=== PATIENT | female | born 1960 | race Caucasian/White ===

== ENCOUNTER → 2020-03-08 10:44 | Outpatient (CLI) | payer OTHER, SELFPAY ==
--- NOTE | ~2020-03-08 | MM_ITS ---
EXAMINATION: MM screening [facility] w [facility]on HISTORY: Screening TECHNIQUE: Craniocaudal and mediolateral oblique 3-D tomosynthesis images were obtained and synthetic 2-D images were generated. CAD analysis was submitted and interpreted. COMPARISON: Comparison to multiple prior studies sequentially, with oldest reviewed study dated 07/2013. BREAST PARENCHYMAL COMPOSITION: There are scattered areas of fibroglandular density. FINDINGS: There is no evidence of suspicious mass, calcification, or architectural distortion to sugg est malignancy in either breast. There has been no suspicious interval change. IMPRESSION: 1. No mammographic evidence of malignancy. 2. Recommend routine screening mammography in one year. BI-RADS Category 1: Negative Reviewed, dictated and finalized at location A.
== END ==
PROVIDERS: Visit Provider Nurse Practitioner
DX: Z12.31 Encounter for screening mammogram for malignant neoplasm of breast (principal)
CPT/HCPCS: 77063; 77067

== ENCOUNTER 2020-11-13 12:41 | Outpatient (CLI) | payer OTHER, SELFPAY ==
--- NOTE | ~2020-11-13 | XR_ITS ---
XR foot LT 2V DATE: 11/13/2020 13:38 INDICATION: Rheumatoid arthritis. Painful and swollen joints. TECHNIQUE: Standing AP and lateral views COMPARISON: None FINDINGS: Diffuse osteopenia. There is soft tissue swelling at the lateral aspect of the right distal fifth metatarsal and fifth me tatarsophalangeal area. Moderate osteoarthritic change including joint space narrowing and spurring at the first metatarsopha langeal joint. Mild hallux valgus and bunion deformity. Slight plantar calcaneal enthesopathy. No fracture, dislocation, periosteal reaction or bone destruction or erosive changes are noted. IMPRESSION: Moderate osteoarthritis at first metatarsophalangeal joint Mild hallux valgus and bunion deformity Soft tissue swelling at the lateral fifth metatarsophalangeal area Slight plantar calcaneal enthesopathy Reviewed, dictated and finalized at location A.
--- NOTE | ~2020-11-13 | XR_ITS ---
EXAMINATION: HAND-VIKASH ARTHRITIS 3+VIEWS DATE: 11/13/2020 13:38 INDICATION: Rheumatoid arthritis with joint pain and swelling TECHNIQUE: Posteroanterior, lateral, and oblique views of the left and of the right hands as well as a ballcatchers view of both hands were obtained. COMPARISON: None. FINDINGS: Left hand: Normal alignment at the left hand. No fracture. Osteoarthritis characterized by nonuniform joint spac e narrowing and small marginal osteophytes, mild at the left triscaphe, first carpometacarpal, first metacarpophalangeal and multiple predominantly distal interphalangeal joints. There is periarticular soft tissue swelling most prominent at the first, second and third metacarpophalangeal joints. No ero sions identified. Right hand: The dorsal palmar view of the right hand appears to demonstrate some rotation of the scaphoid and sriram ate raising suspicion for dorsal intercalated segment instability (DISI) however the alignment appear s normal on the lateral projection. There is however severe osteoarthritis at the radioscaphoid artic ulation which could be seen with scapholunate advanced collapse (SLAC) wrist. There are a couple tiny ossicles at the ulnar side of the wrist joint which could represent either degenerative loose bodies or heterotopic ossicles related to old trauma. There is additional mild osteoarthritis at the wrist, triscaphe, first carpometacarpal, first-third metacarpophalangeal and multiple predominantly distal interphalangeal joints. Relatively symmetric pattern of periarticular soft tissue swelling at the fir st-third metacarpophalangeal joints. There is additional periarticular soft tissue swelling at the th ird proximal interphalangeal joint. No erosions identified. IMPRESSION: 1. Relatively symmetric polyarticular osteoarthritis of both hands aside from severe likely secondary osteoarthritis at the right scaphoid articulation which may be related to old trauma. 2. Prominent nonspecific periarticular soft tissue swelling at the bilateral first-third metacarpopha langeal joints and at the left third proximal interphalangeal joint. Synovitis at the metacarpophalan geal joints would be typical of rheumatoid arthritis although no erosions are appreciated to more spe cifically suggest this. Reviewed, dictated and finalized at location A. IMPRESSION: 1. Relatively symmetric polyarticular osteoarthritis of both hands aside from s evere likely secondary osteoarthritis at the right scaphoid articulation which may be related to old trauma. 2. Prominent nonspecific periarticular soft tissue swelling at the bilateral fi rst-third metacarpophalangeal joints and at the left third proximal interphalan geal joint. Synovitis at the metacarpophalangeal joints would be typical of rhe umatoid arthritis although no erosions are appreciated to more specifically sug gest this.
--- NOTE | ~2020-11-13 | XR_ITS ---
XR foot RT 2V DATE: 11/13/2020 13:38 INDICATION: Painful swollen joints. Rheumatoid arthritis. TECHNIQUE: AP and lateral views COMPARISON: 03/31/2018 right foot FINDINGS: There has been interval prominent soft tissue swelling of the lateral aspect of the fifth m etatarsophalangeal area. There is narrowing and scalloping of the mid and distal shaft and neck of the proximal phalanx of the fourth digit due to chronic extrinsic pressure. Otherwise no juxta articular erosions are noted. Mild chronic organized periosteal reaction along the proximal to mid lateral shaft of the fourth meta tarsal bone. Slight plantar and posterior calcaneal enthesopathy. IMPRESSION: Focal soft tissue swelling at the lateral fifth metatarsophalangeal area Chronic extrinsic erosion on the shaft and neck of the proximal phalanx of the fourth digit Slight plantar and posterior calcaneal enthesopathy Reviewed, dictated and finalized at location A.
== END 2020-11-13 12:42 | disposition home or self-care (01) ==
PROVIDERS: PCP Family Medicine; Visit Provider Internal Medicine
DX: M35.1 Other overlap syndromes (principal); M05.79 Rheumatoid arthritis with rheumatoid factor of multiple sites without organ or systems involvement; M19.90 Unspecified osteoarthritis, unspecified site
CPT/HCPCS: 73130; 73620

== ENCOUNTER 2020-12-18 07:09 | Outpatient (CLI) | payer OTHER, SELFPAY ==
[2020-12-18 07:28] LABS: Hemoglobin 13.8 g/dL (12.0-15.0); Mean Corpuscular HGB Conc 32.1 g/dL (32.0-36.0); Mean Corpuscular Hemoglobin 29.7 pg (27.0-31.0); Mean Corpuscular Volume 92.7 fL (78.0-102.0); Mean Platelet Volume 10.4 fl (9.2-11.8); Platelet Count Result 316 K/mm3 (150-420); Red Blood Count 4.64 M/mm3 (4.20-5.40); Red Cell Distribution Width 13.1 % (11.6-14.4); White Blood Count 6.9 K/mm3 (4.8-10.8)
[2020-12-18 07:29] LABS: Add Urine Microscopic? NO; Appearance Urine Clear (Clear); Bilirubin Urine Negative (Negative); Blood Urine Negative (Negative); Color Urine Light Yellow (Yellow); Glucose Urine UA Negative (Negative); Ketones Urine Negative (Negative); Leukocyte Esterase Ur Negative LEU/UL (Negative); Nitrate Urine Negative (Negative); Protein Urine Negative (Negative); Specific Grav Ur <= 1.005 (1.010-1.020); Urobilinogen Urine 0.2 mg/dL (0.2-1.0); pH Urine 6.5 (5.0-8.0)
[2020-12-18 08:24] LABS: Alanine Aminotransferase 34 U/L (14-59); Albumin Level 3.4 g/dL (3.4-5.0); Alkaline Phosphatase 89 U/L (46-116); Anion Gap 11 mmol/L (8-16); Aspartate Amino Transferase 19 U/L (15-37); Bilirubin,Total 0.4 mg/dL (0.00-1.00); Blood Urea Nitrogen 14 mg/dL (7-18); CRP 0.7 mg/dL (0.0-0.9); Calcium 8.2 mg/dL (8.5-10.1); Carbon Dioxide 26 mmol/L (21-32); Chloride 106 mmol/L (98-108); Estimated Glomerular Filt Rate > 60; Glucose 104 mg/dL (70-99); Osmolality Calculated 296 mOsm/kg (285-295); Potassium 4.2 mmol/L (3.5-5.1); Sodium 143 mmol/L (136-145); Total Protein 6.8 g/dL (6.4-8.2)
[2020-12-18 08:47] LABS: Rheumatoid Factor Screen Positive (Negative)
[2020-12-18 08:55] LABS: Erythrocyte Sedimentation Rate 24 mm/hr (0-20); RFT Charge Test YES
[2020-12-20 19:59] LABS: Hepatitis B Surface Antibody Nonreactive (Nonreactive); Hepatitis B Surface Antigen Nonreactive (Nonreactive); Hepatitis C Signal to Cutoff 0.01 ratio (<1.00); Hepatitis C Virus Antibody Nonreactive (Nonreactive)
[2020-12-21 11:03] LABS: Complement C3 152 mg/dL (83-193)
[2020-12-22 07:33] LABS: Quantiferon TB Plus, 1T NEGATIVE
[2020-12-22 07:34] LABS: NIL 0.02 IU/mL
[2020-12-22 08:00] LABS: SM Antibody <1.0; SM/RNP Antibody 6.4
[2020-12-22 10:38] LABS: SS-A <1.0; SS-B <1.0
== END 2020-12-18 07:10 | disposition home or self-care (01) ==
LOC: CHSLAB 07:12
PROVIDERS: PCP Family Medicine; Visit Provider Internal Medicine
DX: M19.90 Unspecified osteoarthritis, unspecified site (principal); M35.1 Other overlap syndromes; M05.79 Rheumatoid arthritis with rheumatoid factor of multiple sites without organ or systems involvement
CPT/HCPCS: 36415; 80053; 81003; 85027; 85652; 86038; 86039; 86140; 86160; 86225; 86235; 86430; 86431; 86480; 86706

== ENCOUNTER 2021-04-21 06:32 | Outpatient (CLI) | payer OTHER, SELFPAY ==
--- NOTE | ~2021-04-21 | MR_ITS ---
EXAMINATION: MR foot RT wo con, MR foot LT wo con DATE: 04/21/2021 08:48 INDICATION: Rheumatoid arthritis with rheumatoid factor presenting with bones at the lateral aspect o f both feet. TECHNIQUE: 1. Magnetic resonance imaging (MRI) of the right fore/mid foot was performed without intravenous cont rast. Sequences included sagittal T1-weighted FSE, sagittal fluid sensitive FSE STIR, coronal PD-weig hted FS FSE, coronal T1-weighted FSE, axial PD-weighted FS FSE, and axial PD-weighted FSE. 2. MRI of the left fore/mid foot was performed without intravenous contrast and utilizing the same co mplement of sequences. COMPARISON: None FINDINGS: Bone alignment is normal at the bilateral mid and forefeet. No fractures. There are globular periarti cular collections of heterogeneous T2 hyperintense material most prominent about the bilateral fifth metatarsophalangeal joints likely representing synovitis in the setting of an inflammatory arthritis. Additional smaller collection of synovitis about the right second-fourth metatarsophalangeal and lef t first metatarsophalangeal joints. There is diffuse marrow edema throughout the head of the right fi fth metatarsal. Otherwise normal marrow signal throughout the bilateral mid and forefeet. No discrete erosions identified. Mild arthritis at the right first metatarsophalangeal joint with joint space na rrowing and mild subarticular edema at the articulation between the head of the first metatarsal and the tibial sesamoid. Additional mild likely osteoarthritis with tiny marginal osteophyte and subartic ular cystic changes at the left first tarsal metatarsal joint. The flexor and extensor tendons are no rmal. There is mild tenosynovitis along the flexor tendons to the right great toe at the level of the distal metatarsal. 7 x 7 x 4 mm more homogeneously and hyperintense ganglion cyst at the medial side of the left fourth middle phalanx which appears to demonstrate a thin neck extending to the proximal interphalangeal joint. No other masses or abnormal fluid collections identified. There is mild peria rticular soft tissue edema about the metatarsophalangeal joints in the left foot. Visualized intrinsi c musculature of the bilateral feet appears otherwise unremarkable. The Lisfranc ligaments and the co llateral ligament complex at the metatarsophalangeal and interphalangeal joints are normal. IMPRESSION: 1. Prominent globular periarticular synovitis at the left second-fifth and right first and fifth tars al metatarsal joints, the most severe at the bilateral fifth tarsal metatarsal joints accounting for the reported bumps on physical exam. This could be seen with either rheumatoid arthritis for which th e patient is a provided clinical history or tophaceous gout. 2. No cortical erosions however there is nonspecific mild marrow edema at the head of the right fifth metatarsal which could be related to rheumatoid. Reviewed, dictated and finalized at location A. UNTS RECEIVABLE ADMINISTRATOR IMPRESSION: 1. Prominent globular periarticular synovitis at the left second-fifth and righ t first and fifth tarsal metatarsal joints, the most severe at the bilateral fi fth tarsal metatarsal joints accounting for the reported bumps on physical exam . This could be seen with either rheumatoid arthritis for which the patient is a provided clinical history or tophaceous gout. 2. No cortical erosions however there is nonspecific mild marrow edema at the h ead of the right fifth metatarsal which could be related to rheumatoid.
== END 2021-04-21 06:33 | disposition home or self-care (01) ==
PROVIDERS: PCP Family Medicine; Visit Provider Internal Medicine
DX: M05.79 Rheumatoid arthritis with rheumatoid factor of multiple sites without organ or systems involvement (principal)
CPT/HCPCS: 73718

== ENCOUNTER 2021-04-24 13:45 | Outpatient (NON) | payer OTHER, SELFPAY | END 2021-04-24 13:46 | disposition home or self-care (01) | LOC: CHSLAB 13:47 | PROVIDERS: Visit Provider Nurse Practitioner Family | DX: Z12.4 Encounter for screening for malignant neoplasm of cervix (principal); Z13.89 Encounter for screening for other disorder | CPT/HCPCS: 87491; 87591; 87624; 88175; G0145 ==

== ENCOUNTER 2021-04-25 12:20 | Outpatient (CLI) | payer OTHER, SELFPAY ==
--- NOTE | ~2021-04-25 | MM_ITS ---
EXAMINATION: MM screening [facility] BI w leon HISTORY: Screening mammogram TECHNIQUE: Craniocaudal and mediolateral oblique 3-D tomosynthesis images were obtained and synthetic 2-D images were generated. CAD analysis was submitted and interpreted. COMPARISON: 03/08/2020, 03/03/2019, 02/25/2018 BREAST PARENCHYMAL COMPOSITION: There are scattered areas of fibroglandular density. FINDINGS: Stable focal asymmetry in the middle third of the upper outer quadrant of the right breast is consistent with a benign finding. There is no evidence of suspicious mass, calcification, or archi tectural distortion to suggest malignancy in either breast. There has been no suspicious interval kaya nge. IMPRESSION: 1. No mammographic evidence of malignancy. 2. Recommend routine screening mammography in one year. BI-RADS Category 2: Benign finding(s). Reviewed, dictated and finalized at location A. DDING SPECIALIST
== END 2021-04-25 12:21 | disposition home or self-care (01) ==
LOC: CHSIMG 12:21
PROVIDERS: PCP Nurse Practitioner Family; Visit Provider Nurse Practitioner Family
DX: Z12.31 Encounter for screening mammogram for malignant neoplasm of breast (principal)
CPT/HCPCS: 77063; 77067

== ENCOUNTER 2021-05-07 07:07 | Outpatient (CLI) | payer OTHER, SELFPAY ==
[2021-05-07 07:20] LABS: Add Urine Microscopic? NO; Appearance Urine Clear (Clear); Bilirubin Urine Negative (Negative); Blood Urine Negative (Negative); Color Urine Light Yellow (Yellow); Glucose Urine UA Negative (Negative); Hematocrit 39.9 % (35.0-49.0); Hemoglobin 12.8 g/dL (12.0-15.0); Ketones Urine Negative (Negative); Leukocyte Esterase Ur Negative LEU/UL (Negative); Mean Corpuscular HGB Conc 32.1 g/dL (32.0-36.0); Mean Corpuscular Hemoglobin 28.5 pg (27.0-31.0); Mean Corpuscular Volume 88.9 fL (78.0-102.0); Mean Platelet Volume 10.5 fl (9.2-11.8); Nitrate Urine Negative (Negative); Platelet Count Result 246 K/mm3 (150-420); Protein Urine Negative (Negative); Red Blood Count 4.49 M/mm3 (4.20-5.40); Red Cell Distribution Width 12.4 % (11.6-14.4); Specific Grav Ur 1.015 (1.010-1.020); Urobilinogen Urine 0.2 mg/dL (0.2-1.0); White Blood Count 8.2 K/mm3 (4.8-10.8); pH Urine 5.5 (5.0-8.0)
[2021-05-07 08:23] LABS: Erythrocyte Sedimentation Rate 22 mm/hr (0-20)
[2021-05-07 09:03] LABS: Alanine Aminotransferase 30 U/L (14-59); Albumin Level 3.2 g/dL (3.4-5.0); Alkaline Phosphatase 78 U/L (46-116); Anion Gap 9 mmol/L (8-16); Aspartate Amino Transferase 18 U/L (15-37); Bilirubin,Total 0.3 mg/dL (0.00-1.00); Blood Urea Nitrogen 9 mg/dL (7-18); CRP < 0.5 mg/dL (0.0-0.9); Calcium 8.8 mg/dL (8.5-10.1); Carbon Dioxide 27 mmol/L (21-32); Chloride 108 mmol/L (98-108); Estimated Glomerular Filt Rate > 60; Glucose 93 mg/dL (70-99); Osmolality Calculated 296 mOsm/kg (285-295); Potassium 4.2 mmol/L (3.5-5.1); Sodium 144 mmol/L (136-145); Total Protein 6.4 g/dL (6.4-8.2)
== END 2021-05-07 07:08 | disposition home or self-care (01) ==
LOC: CHSLAB 07:09
PROVIDERS: PCP Family Medicine; Visit Provider Internal Medicine
DX: M05.79 Rheumatoid arthritis with rheumatoid factor of multiple sites without organ or systems involvement (principal); M19.90 Unspecified osteoarthritis, unspecified site
CPT/HCPCS: 36415; 80053; 81003; 85027; 85652; 86140

== ENCOUNTER 2022-01-19 07:13 | Outpatient (CLI) | payer OTHER, SELFPAY ==
[2022-01-19 07:25] LABS: Hematocrit 39.5 % (35.0-49.0); Hemoglobin 12.9 g/dL (12.0-15.0); Mean Corpuscular HGB Conc 32.7 g/dL (32.0-36.0); Mean Corpuscular Hemoglobin 28.9 pg (27.0-31.0); Mean Corpuscular Volume 88.6 fL (78.0-102.0); Mean Platelet Volume 10.4 fl (9.2-11.8); Platelet Count Result 258 K/mm3 (150-420); Red Blood Count 4.46 M/mm3 (4.20-5.40); Red Cell Distribution Width 12.7 % (11.6-14.4); White Blood Count 5.8 K/mm3 (4.8-10.8)
[2022-01-19 07:34] LABS: Add Urine Microscopic? NO; Appearance Urine Clear (Clear); Bilirubin Urine Negative (Negative); Blood Urine Negative (Negative); Color Urine Light Yellow (Yellow); Glucose Urine UA Negative (Negative); Ketones Urine Negative (Negative); Leukocyte Esterase Ur Negative LEU/UL (Negative); Nitrate Urine Negative (Negative); Protein Urine Negative (Negative); Specific Grav Ur <= 1.005 (1.010-1.020); Urobilinogen Urine 0.2 mg/dL (0.2-1.0); pH Urine 5.5 (5.0-8.0)
[2022-01-19 07:46] LABS: Alanine Aminotransferase 41 U/L (14-59); Albumin Level 3.3 g/dL (3.4-5.0); Alkaline Phosphatase 79 U/L (46-116); Anion Gap 7 mmol/L (8-16); Aspartate Amino Transferase 25 U/L (15-37); Bilirubin,Total 0.3 mg/dL (0.00-1.00); Blood Urea Nitrogen 12 mg/dL (7-18); Calcium 8.3 mg/dL (8.5-10.1); Carbon Dioxide 26 mmol/L (21-32); Chloride 106 mmol/L (98-108); Estimated Glomerular Filt Rate > 60; Glucose 100 mg/dL (70-99); Osmolality Calculated 287 mOsm/kg (285-295); Sodium 139 mmol/L (136-145); Total Protein 6.8 g/dL (6.4-8.2)
[2022-01-19 07:50] LABS: CRP < 0.2 mg/dL (0.0-0.9)
[2022-01-19 08:35] LABS: Erythrocyte Sedimentation Rate 20 mm/hr (0-20)
== END 2022-01-19 07:14 | disposition home or self-care (01) ==
LOC: CHSLAB 07:15
PROVIDERS: PCP Family Medicine; Visit Provider Internal Medicine
DX: M19.90 Unspecified osteoarthritis, unspecified site (principal); M35.1 Other overlap syndromes
CPT/HCPCS: 36415; 80053; 81003; 85027; 85652; 86140

== ENCOUNTER 2022-05-14 13:41 | Outpatient (CLI) | payer OTHER, SELFPAY ==
--- NOTE | ~2022-05-14 | MM_ITS ---
EXAMINATION: MM screening [facility] BI w leon HISTORY: Screening TECHNIQUE: Craniocaudal and mediolateral oblique 3-D tomosynthesis images were obtained and synthetic 2-D images were generated. CAD analysis was submitted and interpreted. COMPARISON: Comparison to multiple prior studies sequentially, with oldest reviewed study dated 02/14. BREAST PARENCHYMAL COMPOSITION: There are scattered areas of fibroglandular density. FINDINGS: There is no evidence of suspicious mass, calcification, or architectural distortion to sugg est malignancy in either breast. There has been no suspicious interval change. IMPRESSION: 1. No mammographic evidence of malignancy. 2. Recommend routine screening mammography in one year. BI-RADS Category 1: Negative Reviewed, dictated and finalized at location B. UNICATION ENGINEER
== END 2022-05-14 13:42 | disposition home or self-care (01) ==
LOC: CHSIMG 13:43
PROVIDERS: PCP Family Medicine; Visit Provider Nurse Practitioner Family
DX: Z12.31 Encounter for screening mammogram for malignant neoplasm of breast (principal)
CPT/HCPCS: 77063; 77067

== ENCOUNTER 2022-07-12 15:10 | Outpatient (CLI) | payer OTHER, SELFPAY ==
--- NOTE | ~2022-07-12 | XR_ITS ---
EXAMINATION: XR lumbar spine 2-3V DATE: 07/12/2022 15:41 INDICATION: Low back pain with sciatica TECHNIQUE: Anteroposterior and lateral views of the lumbar spine, and cone-down lateral view of the l umbosacral junction were obtained. COMPARISON: None. FINDINGS: No fracture, dislocation, or subluxation. The vertebral body heights are normal. There is m ild loss of intervertebral disc space height at L4-5. Small degenerative osteophytes project from the anterior endplates of multiple vertebral bodies. There is moderate facet joint osteoarthritis of the lower lumbar spine. IMPRESSION: 1. Mild lumbar spondylosis without acute findings. Reviewed, dictated and finalized at location B. OMETEOROLOGY TEACHER
== END 2022-07-12 15:11 | disposition home or self-care (01) ==
LOC: CHSIMG 15:12
PROVIDERS: PCP Family Medicine; Visit Provider Family Medicine
DX: G89.29 Other chronic pain (principal); M54.42 Lumbago with sciatica, left side; M43.06 Spondylolysis, lumbar region
CPT/HCPCS: 72100

== ENCOUNTER 2022-07-16 14:59 | Outpatient (RCR) | payer OTHER, SELFPAY ==
--- NOTE | 2022-07-17 16:38 | BUPTOPEVAL1 ---
Assessment and note entered by Rahat Fine Evaluation Information Assessment Status Evaluation Diagnosis lumbago Onset 07/12/22 Subjective Information Pt. reports that she developed pain in the low back and down the left leg about 1 month ago. She reports that she was walking her cat and the cat began to pull, which twisted her back. She recalls no immediate pain, but pain began shortly after the incident. She reports pain is currently constant. She reports that she does suffer from mixed connective tissue disease, which she sees a massage therapist treat. She reports that her left foot is making a dropping noise as she walks. She states that pain is most notable with getting up from a seated position. She states that she is taking mm. relaxor before bed which helps with sleep. She is not currently taking any pain medication. Pt. reports that she was walking at least 1 mile everyday before her injury , but cannot currently walk 1 block. She reports she avoids going to [facility] because she is uncomfortable in a chair. She reports that her goal is to decrease her back pain. Reported Pain Level Pain Score 3: Self Report Assessment PT Clinical Summary Pt. is a 62 year old female who enters the clinic with low back pain and left l.e. weakness. She presents with impaired postural awareness, impaired strength, impaired gait, and pain on this date. Continued treatment is indicated in order to improve these areas to allow the pt. to participate in IADL's with improved comfort. Plan of Care Interventions Electrical Stimulation,Hot Pack/Cold Pack,Manual Therapy,Mechanical Traction,Neuro Re-education, Patient/Caregiver Educati,Therapeutic Activities, Therapeutic Exercise,Self-Care/Home Management PT Services Indicated Yes Treatment Frequency and 2x/week x 10 visits Duration These treatments will address the objective and functional deficits as defined above. The patient will be advanced safely and appropriately in order for the patient to progress towards his/her prior level of function. Additional exercises will be introduced and as well as a comprehensive home exercise program upon discharge, if needed, ?to ensure carryover of functional gains achieved in the clinic. This treatment plan has been reviewed and agreement upon by the patient.
--- NOTE | 2022-08-23 11:59 | PTOPDC ---
Assessment and note entered by JT File, PT Evaluation Information Assessment Status Evaluation Diagnosis lumbago Onset 07/12/22 Subjective Information patient reports she feels better overall. she reports she still has radicular symptoms down the L LE, but her pain is decreased. she reports she feels she can manage with her HEP at this time. Reported Pain Level Pain Score 3: Self Report Assessment PT Clinical Summary mrs. arizmendi presents to skilled PT services for her 10th skilled therapy visit. as of this date, she has made progress towards all goals, and has met all goals except for pain and radicular symptoms. as of this date, she will DC skilled PT independent HEP and follow up with MD/PT for an return to therapy needs. Plan of Care Interventions Electrical Stimulation,Hot Pack/Cold Pack,Manual Therapy,Mechanical Traction,Neuro Re-education, Patient/Caregiver Educati,Therapeutic Activities, Therapeutic Exercise,Self-Care/Home Management PT Services Indicated Yes Treatment Frequency and DC to independent HEP Duration
== END 2022-08-23 10:52 | disposition home or self-care (01) ==
LOC: CHSPT 14:59
PROVIDERS: PCP Family Medicine; Visit Provider Family Medicine
DX: M54.42 Lumbago with sciatica, left side (principal); G89.29 Other chronic pain
CPT/HCPCS: 97012; 97014; 97110; 97140; 97161; G0283

== ENCOUNTER 2022-07-19 12:51 | Outpatient (CLI) | payer OTHER, SELFPAY ==
--- NOTE | ~2022-07-19 | DEXA_ITS ---
Bone Density Report Name: ARIELLA CACERES Age: 62 Sex: Female Ethnicity: White Date of : 1960 Indication: postmenopausal; screening for osteoporosis; height loss; hysterectomy; rheumatoid arthritis; Referring Provider: Declan Pat Study: Bone densitometry was performed. Exam Date: July 19, 2022 Accession number: [id number] Bone Density: Region BMD T-score Z-score Classification AP Spine(L1-L4) 1.006 -0.4 1.2 Normal Femoral Neck (Left) 0.782 -0.6 0.8 Normal Total Hip (Left) 0.920 -0.2 0.9 Normal Femoral Neck (Right) 0.766 -0.7 0.7 Normal Total Hip (Right) 0.932 -0.1 1.0 Normal Femoral Neck Mean 0.774 -0.7 0.7 Normal Total Hip Mean 0.926 -0.1 1.0 Normal World Health Organization criteria for BMD impression classify patients as: Normal (T-score at or above -1.0), Osteopenia (T-score between -1.0 and -2.5), or Osteoporosis (T-score at or below -2.5). 10-year Fracture Risk: FRAX not reported because: All T-scores for Spine Total, Hip Total, Femoral Neck at or above -1.0 Clinical Information Provided by Patient: Has rheumatoid arthritis Has used the following medications: HRT (i.e. estrogen/hormone therapy), Vitamin D, Calcium, multivitiman Has the following medical conditions: Hysterectomy Patient maximum height was 65 Menopause Age: 39 Onset of menses at age 13 Number of children 1 Impression: The patient has normal bone mass. Discussion: BONE DENSITY IS ABOVE THE MINIMUM DESIRABLE LEVEL AT ALL SKELETAL SITES TESTED. This patient?s bone mineral density is above the minimum desirable level (T-score -1.0 or better) at all sites measured. The patient should follow a healthful lifestyle (good nutrition with adequate calcium and vitamin D, and appropriate weight-bearing exercise). Follow-Up: Consider repeating this study in 5 years or sooner if there is some new clinical indication. Reported by: Dr. Matthew Harris on 07/19/2022 1:12:00 PM. Reviewed, dictated and finalized at location [facility]
== END 2022-07-19 12:52 | disposition home or self-care (01) ==
LOC: CHSIMG 12:52
PROVIDERS: PCP Family Medicine; Visit Provider Family Medicine
DX: Z78.0 Asymptomatic menopausal state (principal)
CPT/HCPCS: 77080

== ENCOUNTER 2022-08-10 07:02 | Outpatient (CLI) | payer OTHER, SELFPAY ==
[2022-08-10 07:19] LABS: Hematocrit 39.4 % (35.0-49.0); Hemoglobin 12.7 g/dL (12.0-15.0); Mean Corpuscular HGB Conc 32.2 g/dL (32.0-36.0); Mean Corpuscular Hemoglobin 28.6 pg (27.0-31.0); Mean Corpuscular Volume 88.7 fL (78.0-102.0); Mean Platelet Volume 10.3 fl (9.2-11.8); Platelet Count Result 283 K/mm3 (150-420); Red Blood Count 4.44 M/mm3 (4.20-5.40); Red Cell Distribution Width 13.1 % (11.6-14.4); White Blood Count 5.8 K/mm3 (4.8-10.8)
[2022-08-10 07:20] LABS: Appearance Urine Clear (Clear); Bilirubin Urine Negative (Negative); Blood Urine Negative (Negative); Color Urine Light Yellow (Yellow); Glucose Urine UA Negative (Negative); Ketones Urine Negative (Negative); Nitrate Urine Negative (Negative); Protein Urine Negative (Negative); Urobilinogen Urine 0.2 mg/dL (0.2-1.0)
[2022-08-10 07:22] LABS: Add Urine Microscopic? NO; Leukocyte Esterase Ur Negative LEU/UL (Negative)
[2022-08-10 07:36] LABS: Alanine Aminotransferase 49 U/L (14-59); Albumin Level 3.4 g/dL (3.4-5.0); Alkaline Phosphatase 71 U/L (46-116); Anion Gap 7 mmol/L (8-16); Aspartate Amino Transferase 28 U/L (15-37); Bilirubin,Total 0.4 mg/dL (0.00-1.00); Blood Urea Nitrogen 14 mg/dL (7-18); Calcium 8.7 mg/dL (8.5-10.1); Carbon Dioxide 30 mmol/L (21-32); Chloride 107 mmol/L (98-108); Estimated Glomerular Filt Rate > 60; Glucose 100 mg/dL (70-99); Osmolality Calculated 298 mOsm/kg (285-295); Potassium 4.2 mmol/L (3.5-5.1); Sodium 144 mmol/L (136-145); Total Protein 6.6 g/dL (6.4-8.2)
[2022-08-10 07:43] LABS: CRP < 0.5 mg/dL (0.0-0.9)
[2022-08-10 08:38] LABS: Erythrocyte Sedimentation Rate 15 mm/hr (0-20)
== END 2022-08-10 07:03 | disposition home or self-care (01) ==
LOC: CHSLAB 07:03
PROVIDERS: PCP Family Medicine; Visit Provider Internal Medicine
DX: M05.79 Rheumatoid arthritis with rheumatoid factor of multiple sites without organ or systems involvement (principal); M19.90 Unspecified osteoarthritis, unspecified site
CPT/HCPCS: 36415; 80053; 81003; 85027; 85652; 86140

== ENCOUNTER 2022-08-27 10:21 | Outpatient (CLI) | payer OTHER, SELFPAY ==
[2022-08-29 17:14] LABS: NIL 0.01 IU/mL; Quantiferon TB Plus, 1T NEGATIVE (NEGATIVE); TB2-NIL 0.03 IU/mL
== END 2022-08-27 10:22 | disposition home or self-care (01) ==
LOC: CHSLAB 10:23
PROVIDERS: PCP Family Medicine; Visit Provider Internal Medicine
DX: M05.79 Rheumatoid arthritis with rheumatoid factor of multiple sites without organ or systems involvement (principal)
CPT/HCPCS: 36415; 86480

== ENCOUNTER → 2022-10-16 12:27 | Outpatient (CLI) | payer OTHER, SELFPAY ==
--- NOTE | ~2022-10-16 | MR_ITS ---
EXAMINATION: MR lumbar spine wo con DATE: 10/16/2022 13:17 INDICATION: Chronic low back pain. TECHNIQUE: Magnetic resonance imaging (MRI) of the lumbar spine was performed without intravenous con trast. Sequences included sagittal T2-weighted FSE, sagittal T2-weighted FS FSE, sagittal T1-weighted FSE, and axial T2-weighted FSE. COMPARISON: Lumbar spine radiographs 07/12/2022 FINDINGS: There is 6 degrees levocurvature of thoracolumbar spine. Vertebral body heights are normal. There is mildly decreased disc height at L4-L5. The distal spinal cord signal intensity is normal. T he conus medullaris is at L1. The following disc levels are specifically discussed: L1-L2: The disc does not extend beyond the endplate margin. There is mild bilateral facet joint osteo arthritis. There is no neural foraminal stenosis. There is no central canal stenosis. L2-L3: The disc is bulging and has an annular fissure. There is mild bilateral facet joint osteoarthr itis. There is mild bilateral neural foraminal stenosis. There is mild central canal stenosis. L3-L4: The disc is bulging and has an annular fissure. There is moderate bilateral facet joint osteoa rthritis. There is mild bilateral neural foraminal stenosis. There is no central canal stenosis. L4-L5: The disc is bulging and has an annular fissure. There is severe bilateral facet joint osteoart hritis. There is mild right and moderate left neural foraminal stenosis. There is mild central canal stenosis. L5-S1: The disc does not extend beyond the endplate margin. There is severe bilateral facet joint ost eoarthritis. There is mild left neural foraminal stenosis. There is no central canal stenosis. IMPRESSION: 1. Moderate lumbar spondylosis. Reviewed, dictated and finalized at location A.
== END ==
PROVIDERS: PCP Family Medicine; Visit Provider Family Medicine
DX: M47.896 Other spondylosis, lumbar region (principal)
CPT/HCPCS: 72148

== ENCOUNTER 2022-12-21 06:57 | Outpatient (CLI) | payer OTHER, SELFPAY ==
[2022-12-21 07:10] LABS: Hematocrit 40.7 % (35.0-49.0); Hemoglobin 12.9 g/dL (12.0-15.0); Mean Corpuscular HGB Conc 31.7 g/dL (32.0-36.0); Mean Corpuscular Hemoglobin 28.7 pg (27.0-31.0); Mean Corpuscular Volume 90.6 fL (78.0-102.0); Mean Platelet Volume 10.1 fl (9.2-11.8); Platelet Count Result 247 K/mm3 (150-420); Red Blood Count 4.49 M/mm3 (4.20-5.40); Red Cell Distribution Width 12.3 % (11.6-14.4); White Blood Count 4.9 K/mm3 (4.8-10.8)
[2022-12-21 07:20] LABS: Appearance Urine Clear (Clear); Bilirubin Urine Negative (Negative); Blood Urine Negative (Negative); Color Urine Light Yellow (Yellow); Glucose Urine UA Negative (Negative); Ketones Urine Negative (Negative); Leukocyte Esterase Ur Trace LEU/UL (Negative); Nitrate Urine Negative (Negative); Protein Urine Negative (Negative); Urobilinogen Urine 0.2 mg/dL (0.2-1.0); pH Urine 6.5 (5.0-8.0)
[2022-12-21 07:27] LABS: Add Urine Microscopic? YES; Bacteria Urine Rare /hpf; RBC Urine None seen /hpf (0-2); Squamous Epithelial Cell Urine Rare /hpf (Few); WBC Urine 0-3 /hpf (0-3)
[2022-12-21 08:02] LABS: Alanine Aminotransferase 29 U/L (14-59); Albumin Level 3.5 g/dL (3.4-5.0); Alkaline Phosphatase 68 U/L (46-116); Anion Gap 8 mmol/L (8-16); Aspartate Amino Transferase 22 U/L (15-37); Bilirubin,Total 0.4 mg/dL (0.00-1.00); Blood Urea Nitrogen 12 mg/dL (7-18); Calcium 8.9 mg/dL (8.5-10.1); Carbon Dioxide 29 mmol/L (21-32); Chloride 107 mmol/L (98-108); Estimated Glomerular Filt Rate > 60; Glucose 94 mg/dL (70-99); Osmolality Calculated 297 mOsm/kg (285-295); Potassium 4.3 mmol/L (3.5-5.1); Sodium 144 mmol/L (136-145); Total Protein 6.5 g/dL (6.4-8.2)
[2022-12-21 08:13] LABS: CRP < 0.5 mg/dL (0.0-0.9)
[2022-12-21 08:24] LABS: Erythrocyte Sedimentation Rate 18 mm/hr (0-20)
== END 2022-12-21 06:58 | disposition home or self-care (01) ==
LOC: CHSLAB 06:59
PROVIDERS: PCP Family Medicine; Visit Provider Internal Medicine
DX: M19.90 Unspecified osteoarthritis, unspecified site (principal); M05.79 Rheumatoid arthritis with rheumatoid factor of multiple sites without organ or systems involvement
CPT/HCPCS: 36415; 80053; 81001; 85027; 85652; 86140

== ENCOUNTER 2022-12-27 11:07 | Outpatient (CLI) | payer OTHER, SELFPAY ==
--- NOTE | ~2022-12-27 | XR_ITS ---
XR foot LT min 3V DATE: 12/27/2022 11:27 INDICATION: Unsteady left foot TECHNIQUE: Weightbearing 4 view examination COMPARISON: None FINDINGS: Slight plantar and posterior calcaneal enthesopathy. There is mild to moderate osteoarthritis at the first metatarsophalangeal joint. There is mild hallux valgus and bunion deformity. No fracture or dislocation, periosteal reaction or bone destruction is detected. IMPRESSION: Hallux valgus and bunion deformity Mild to moderate osteoarthritis at first metatarsophalangeal joint Slight plantar and posterior calcaneal enthesopathy Reviewed, dictated and finalized at location B.
== END 2022-12-27 11:08 | disposition home or self-care (01) ==
LOC: CHSIMG 11:09
PROVIDERS: PCP Family Medicine; Visit Provider Orthopaedic Surgery
DX: M79.672 Pain in left foot (principal); M20.12 Hallux valgus (acquired), left foot; M21.612 Bunion of left foot; M77.32 Calcaneal spur, left foot
CPT/HCPCS: 73630

== ENCOUNTER 2023-01-08 13:04 | Outpatient (RCR) | payer OTHER, SELFPAY ==
--- NOTE | 2023-01-08 15:23 | PTOPEVAL1 ---
Assessment and note entered by JT File, PT Evaluation Information Assessment Status Evaluation Diagnosis L foot drop, sciatica Onset 12/30/22 Subjective Information Patient reports a positive COVID diagnosis in late June 2022, during this time she had significant dizziness upon movement. After a few days, patient noticed she had more difficulty moving around with walking and standing. She also reports a past history of RA that is well managed and she is currently taking predisone for this issue. Patient previously recieved physical therapy this year to address L sciatica following her COVID diagnosis. More recently she has noticed her L foot slapping as she walks, she visited the doctor who recommended PT for treatment and a nerve study to investigate the cause. In the past few weeks the sciatica pain has returned, and she has been doing the exercises of her past HEP frequently. She notes any movement causes discomfort, but she is able to perform all of her normal activities. Patient states that standing or sitting for extended periods of time, such as an hour, excerbate the pain in the L lower back. She is using over the counter NSAIDs, heat, and ice to treat the pain. She notes the pain is primarily in her L lower back and buttock, however will spread down to the L toure with continued activity. She also has difficulty sleeping as she is unable to lay on L side. Reported Pain Level Pain Score 4: Self Report Assessment PT Clinical Summary Mrs. Matthew Crooks is a 62 y/o female who presents to skilled therapy to address L foot drop and sciatica. She demonstrated impaired L LE strength, flexibility, and strength. Patient has abnormal gait pattern and difficulty with functional activities such as walking or standing for longer periods of time. She currently has 85% functional decline as assessed by the LEFS. Patient would benefit from skilled therapy to address gait, strenght, flexibility, and ROM to assist in return to prior level of function. Plan of Care Interventions Electrical Stimulation,Gait Training,Hot Pack/Cold Pack,Manual Therapy,Mechanical Traction,Neuro Re- education,Patient/Caregiver Educati,Therapeutic Activities,Therapeutic Exercise PT Services Indicated Yes Treatment Frequency and 3x/week for
--- NOTE | 2023-01-08 15:23 | OPREHPOC ---
Outpatient Therapy Plan of Care This is a Multidisciplinary Plan of Care that may contain components documented by all disciplines (PT, OT, and ST.) PT Problem 1 PT Problem #1 Knowledge Deficit PT Goal 1 Goal 1. Patient to demonstrate independence with HEP to improve progress made in PT. Target Visit 4 PT Problem 2 PT Problem #2 Impaired Strength PT Goal 1 Goal 1. Patient to improve L dorsiflexion strength to 4 +/5 to help to reduce foot drop during gait pattern. 2. Patient to improve L hip strength to 4+/5 or greater overall to improve patient's ability to ascend stairs. Target Visit 9 PT Problem 3 PT Problem #3 Impaired Range of Motion PT Goal 1 Goal 1. Patient to improve L dorsiflexion AROM to 8 degrees or greater to assist patient in foot clearance to reduce fall risk. Target Visit 9 PT Problem 4 PT Problem #4 Pain PT Goal 1 Goal 1. Patient to report lower back pain as 2/10 or less at worst to allow for increased ability to stand while washing dishes. Target Visit 9 PT Problem 5 PT Problem #5 Impaired Functional Mobil PT Goal 1 Goal 1. Pt to report ability to walk for 15 minutes without pain or discomfort and no foto slap/drop to improve patient's ability to ambulate in grocery store. Target Visit 9
== END 2023-01-21 11:06 | disposition home or self-care (01) ==
LOC: CHSPT 13:04
PROVIDERS: Visit Provider Orthopaedic Surgery
DX: M79.672 Pain in left foot (principal); M21.372 Foot drop, left foot; M54.42 Lumbago with sciatica, left side; G89.29 Other chronic pain
CPT/HCPCS: 97014; 97110; 97140; 97161; 97530; G0283

== ENCOUNTER 2023-02-07 10:36 | Outpatient (CLI) | payer OTHER, SELFPAY ==
[2023-02-07 11:22] LABS: Influenza A QL RT-PCR Negative (Negative); Influenza B QL RT-PCR Negative (Negative); SARS-CoV-2 RNA PCR Negative (Negative)
== END 2023-02-07 10:37 | disposition home or self-care (01) ==
LOC: CHSLAB 10:38
PROVIDERS: PCP Family Medicine; Visit Provider Family Medicine
DX: R05.9 Cough, unspecified (principal)
CPT/HCPCS: 87636

== ENCOUNTER 2023-03-08 11:30 | Outpatient (CLI) | payer OTHER, SELFPAY ==
[2023-03-08 11:40] LABS: Occult Blood Negative (Negative)
== END 2023-03-08 11:31 | disposition home or self-care (01) ==
LOC: CHSLAB 11:31
PROVIDERS: PCP Family Medicine; Visit Provider Nurse Practitioner Family
DX: Z79.899 Other long term (current) drug therapy (principal)
CPT/HCPCS: 82272

== ENCOUNTER 2023-04-12 06:54 | Outpatient (CLI) | payer OTHER, SELFPAY ==
[2023-04-12 07:08] LABS: Basophils Absolute Auto 0.09 K/mm3 (0.00-0.10); Basophils Percent Auto 1.5 % (0.0-1.0); Eosinophils Absolute Auto 0.19 K/mm3 (0.02-0.50); Eosinophils Percent Auto 3.2 % (1.0-6.0); Hematocrit 41.1 % (35.0-49.0); Hemoglobin 13.2 g/dL (12.0-15.0); Immature Granulocyte Absolute 0.01 K/mm3 (0.00-0.00); Immature Granulocyte Percent A 0.2 % (0.0-0.0); Lymphocytes Absolute Auto 2.36 K/mm3 (1.10-4.50); Lymphocytes Percent Auto 40.2 % (18.0-42.0); Mean Corpuscular HGB Conc 32.1 g/dL (32.0-36.0); Mean Corpuscular Hemoglobin 28.6 pg (27.0-31.0); Mean Corpuscular Volume 89.2 fL (78.0-102.0); Mean Platelet Volume 11.1 fl (9.2-11.8); Monocytes Absolute Auto 0.47 K/mm3 (0.10-0.90); Neutrophils Absolute Auto 2.8 K/mm3 (1.7-7.2); Neutrophils Percent Auto 46.9 % (50.0-70.0); Platelet Count Result 285 K/mm3 (150-420); Red Blood Count 4.61 M/mm3 (4.20-5.40); Red Cell Distribution Width 12.9 % (11.6-14.4); White Blood Count 5.9 K/mm3 (4.8-10.8)
[2023-04-12 07:42] LABS: Alanine Aminotransferase 43 U/L (14-59); Albumin Level 3.5 g/dL (3.4-5.0); Alkaline Phosphatase 93 U/L (46-116); Anion Gap 5 mmol/L (8-16); Aspartate Amino Transferase 25 U/L (15-37); Bilirubin,Total 0.4 mg/dL (0.00-1.00); Blood Urea Nitrogen 16 mg/dL (7-18); Calcium 9.2 mg/dL (8.5-10.1); Carbon Dioxide 32 mmol/L (21-32); Chloride 106 mmol/L (98-108); Estimated Glomerular Filt Rate > 60; Glucose 115 mg/dL (70-99); Osmolality Calculated 298 mOsm/kg (285-295); Potassium 4.3 mmol/L (3.5-5.1); Sodium 143 mmol/L (136-145)
[2023-04-12 07:47] LABS: CRP < 0.5 mg/dL (0.0-0.9)
[2023-04-12 08:07] LABS: Erythrocyte Sedimentation Rate 20 mm/hr (0-20)
== END 2023-04-12 06:55 | disposition home or self-care (01) ==
LOC: CHSLAB 06:57
PROVIDERS: PCP Family Medicine; Visit Provider Internal Medicine Rheumatology
DX: Z79.899 Other long term (current) drug therapy (principal)
CPT/HCPCS: 36415; 80053; 85025; 85652; 86140

== ENCOUNTER 2023-05-20 12:45 | Outpatient (CLI) | payer OTHER, SELFPAY ==
--- NOTE | ~2023-05-20 | MM_ITS ---
EXAMINATION: MM screening [facility] w leon HISTORY: Screening mammogram TECHNIQUE: Craniocaudal and mediolateral oblique 3-D tomosynthesis images were obtained and synthetic 2-D images were generated. CAD analysis was submitted and interpreted. COMPARISON: 05/14/2022, 04/21/2021, 03/08/2020 bilateral screening mammogram examinations BREAST PARENCHYMAL COMPOSITION: The breasts are almost entirely fatty. FINDINGS: There is no evidence of suspicious mass, calcification, or architectural distortion to sugg est malignancy in either breast. There has been no suspicious interval change. IMPRESSION: 1. No mammographic evidence of malignancy. 2. Recommend routine screening mammography in one year. BI-RADS Category 1: Negative Reviewed, dictated and finalized at location A. APEUTIC ACTIVITIES SERVICES WORKER
== END 2023-05-20 12:46 | disposition home or self-care (01) ==
LOC: CHSIMG 12:46
PROVIDERS: PCP Family Medicine; Visit Provider Family Medicine
DX: Z12.31 Encounter for screening mammogram for malignant neoplasm of breast (principal)
CPT/HCPCS: 77063; 77067

== ENCOUNTER 2023-09-09 10:46 | Outpatient (CLI) | payer OTHER, SELFPAY ==
[2023-09-09 11:21] LABS: Basophils Absolute Auto 0.06 K/mm3 (0.00-0.10); Eosinophils Absolute Auto 0.15 K/mm3 (0.02-0.50); Eosinophils Percent Auto 2.4 % (1.0-6.0); Hematocrit 42.1 % (35.0-49.0); Hemoglobin 13.3 g/dL (12.0-15.0); Immature Granulocyte Absolute 0.01 K/mm3 (0.00-0.00); Immature Granulocyte Percent A 0.2 % (0.0-0.0); Lymphocytes Absolute Auto 2.45 K/mm3 (1.10-4.50); Lymphocytes Percent Auto 39.1 % (18.0-42.0); Mean Corpuscular HGB Conc 31.6 g/dL (32-36); Mean Corpuscular Hemoglobin 28.7 pg (27.0-31.0); Mean Corpuscular Volume 90.9 fL (78.0-102.0); Mean Platelet Volume 10.8 fl (9.2-11.8); Monocytes Absolute Auto 0.57 K/mm3 (0.10-0.90); Monocytes Percent Auto 9.1 % (2.0-11.0); Neutrophils Absolute Auto 3.02 K/mm3 (1.70-7.20); Neutrophils Percent Auto 48.2 % (50.0-70.0); Platelet Count Result 250 K/mm3 (150-420); Red Blood Count 4.63 M/mm3 (4.20-5.40); Red Cell Distribution Width 12.9 % (11.6-14.4); White Blood Count 6.3 K/mm3 (4.8-10.8)
[2023-09-09 11:47] LABS: Alanine Aminotransferase 40 U/L (14-59); Albumin Level 3.8 g/dL (3.4-5.0); Alkaline Phosphatase 87 U/L (46-116); Anion Gap 10 mmol/L (4-12); Aspartate Amino Transferase 25 U/L (15-37); Bilirubin,Total 0.3 mg/dL (0.00-1.00); Blood Urea Nitrogen 19 mg/dL (7-18); Calcium 9.1 mg/dL (8.5-10.1); Carbon Dioxide 27 mmol/L (21-32); Chloride 104 mmol/L (98-108); Estimated Glomerular Filt Rate > 60; Glucose 91 mg/dL (70-99); Osmolality Calculated 294 mOsm/kg (285-295); Potassium 4.4 mmol/L (3.5-5.1); Sodium 141 mmol/L (136-145); Total Protein 6.9 g/dL (6.4-8.2)
[2023-09-09 11:49] LABS: CRP < 0.5 mg/dL (0.0-0.9)
[2023-09-09 12:20] LABS: Erythrocyte Sedimentation Rate 20 mm/hr (0-20)
== END 2023-09-09 10:47 | disposition home or self-care (01) ==
LOC: CHSLAB 10:48
PROVIDERS: PCP Family Medicine; Visit Provider Internal Medicine Rheumatology
DX: Z79.899 Other long term (current) drug therapy (principal)
CPT/HCPCS: 36415; 80053; 85025; 85652; 86140

== ENCOUNTER 2024-06-22 12:17 | Outpatient (CLI) | payer MEDICARE, SELFPAY ==
--- NOTE | ~2024-06-22 | MM_ITS ---
EXAMINATION: MM screening [facility] BI w leon HISTORY: Screening TECHNIQUE: Craniocaudal and mediolateral oblique 3-D tomosynthesis images were obtained and synthetic 2-D images were generated. CAD analysis was submitted and interpreted. COMPARISON: Comparison to multiple prior studies sequentially, with oldest reviewed study dated 02/25. BREAST PARENCHYMAL COMPOSITION: Not dense: There are scattered areas of fibroglandular density. FINDINGS: There is no evidence of suspicious mass, calcification, or architectural distortion to sugg est malignancy in either breast. There has been no suspicious interval change. IMPRESSION: 1. No mammographic evidence of malignancy. 2. Recommend routine screening mammography in one year. BI-RADS Category 1: Negative Reviewed, dictated and finalized at location A. L WIND ENERGY INSTALLER
== END 2024-06-22 12:18 | disposition home or self-care (01) ==
PROVIDERS: PCP Family Medicine; Visit Provider Nurse Practitioner Family
DX: Z12.31 Encounter for screening mammogram for malignant neoplasm of breast (principal)
CPT/HCPCS: 77063; 77067

== ENCOUNTER 2024-12-10 08:26 | Emergency (ER) | payer MEDICARE, SELFPAY ==
[2024-12-10] VITALS (8 sets, daily range): BP systolic 132–140; BP diastolic 80; PULSE 71–110; RESP 14–27; TEMP 37.4; O2SAT 95–100
--- NOTE | ~2024-12-10 | CT_ITS ---
EXAM: CT brain wo con - 12/10/2024 9:01 CDT History: 64 years old Female with dizziness/ lack of coordination post syncope episode x4 days COMPARISON: None available. PROCEDURE: CT of the head without contrast. Axial, sagittal and coronal reformatted planes were eliseo luated. Automatic exposure control was used for this study. FINDINGS: BRAIN PARENCHYMA: No acute hemorrhage. No mass effect or herniation. Yeung-white matter differentiatio n is maintained. Normal appearance of cortex. VENTRICLES/ EXTRA-AXIAL SPACES: No hydrocephalus or extra-axial fluid collection. EXTRACRANIAL STRUCTURES: No calvarial fracture. IMPRESSION: No evidence for acute intracranial hemorrhage or calvarial fracture. Reviewed, dictated and finalized at location A.
--- NOTE | ~2024-12-10 | XR_ITS ---
EXAM/PROCEDURE: XR chest 2V - 12/10/2024 9:01 CDT HISTORY: 64 years old Female with dizziness/ lack of coordination post syncope episode x4 days TECHNIQUE: Two view(s) of the chest. COMPARISON: None available. FINDINGS: LUNGS/ PLEURA: No focal consolidation. No appreciable pneumothorax or large pleural effusion. HEART/ MEDIASTINUM: Heart appears normal in size. BONES: No acute osseous abnormality. OTHER: Visualized upper abdomen is unremarkable. IMPRESSION: No acute process. Reviewed, dictated and finalized at location A. IMPRESSION: No acute process.
--- OUTSIDE RECORDS SUMMARY | 2024-12-10 08:31 | XMS_ITS ---
Author Organization [facility] Address [address] [place], [place] [id number] Care Team Providers Care Photograph Finisher Name Role Phone FUNMILAYO NARVAEZ Unavailable [phone] Declan Pat Unavailable Unavailable DREW NICHOLAS Unavailable [phone] REASON FOR VISIT *General care Encounters Encounter Location Date Provider Diagnosis [facility] [address], [place] [id number] 07/31/2023 DREW NICHOLAS Plan Of Treatment No Information Progress Notes * ARIELLA CACERES ADOB: (64 yo F)Acc No.[id number]:07/31/2023 Patient: Lloyd MCFARLANE ARIELLA MAST Provider: Lloyd NICHOLAS :1960 A ge:63 Y S ex:Female Date:07/31/2023 Address:[address] [place], [place] [id number] Subjective: * Chief Complaints: * 1 . *General care. * Medical History: Objective: * Vitals: Assessment: Plan: * Treatment: * Billing Information: * Visit Code: * Procedure Codes: * Electronic signature of ARMIN NICHOLAS DPM on 12/10/2024 at 08:30 AM CDT Sign off status: Pending * Provider: Lloyd NICHOLAS Date: 07/31/2023 Generated for Vandana waldron/Amador/Macy on: 12/10/2024 08:30 AM CDT
--- OUTSIDE RECORDS SUMMARY | 2024-12-10 08:31 | XMS_ITS | Clinical Summary ---
Author Organization [facility] Address [address] [place] [id number] Care Team Providers Care Outbound Supervisor Name Role Phone Unavailable Primary Care Provider Unavailabl e Social History Tobacco Use Types Packs/Day Years Used Date Smoking Tobacco: Never Assessed Comments Unknown Sex and Gender Information Value Date Recorded Sex Assigned at Not on file Legal Sex Female 10:51 PM CDT Gender Identity Not on file Sexual Orientation Not on file Plan of Treatment Health Maintenance Due Date Last Done Comments Colorectal Cancer Screening Colonoscopy (10 Years) 1959 Hepatitis C 1977 DTaP, Tdap and Td Vaccines ( 1 - Tdap) 1978 Mammogram Screening 1999 Pneumococcal Vaccine: 50+ Ye ars (1 of 1 - PCV) 2009 Zoster Vaccines (1 of 2) 2009 COVID-19 Vaccine (2023-2 5 season) 2024 Dexa Scan (General) 2024 RSV Immunization or 60+ Years (1 - 1-dose 75+ series) 2034 Meningococcal B Vaccine Aged Out No l onger eligible based on patient's age to complete this topic Meningococcal Vaccine Aged Out No suman william eligible based on patient's age to complete this topic RSV Immunizations Under 20 Months Aged Out No longer eligible based on patient's age to complete this topic
--- OUTSIDE RECORDS SUMMARY | 2024-12-10 08:31 | XMS_ITS | Patient Health Record ---
Author Organization [facility] Address [address] [place], [place] [id number] Care Team Providers Care Trading Manager Name Role Phone FUNMILAYO NARVAEZ Unavailable [phone] Declan Pat Unavailable Unavailable Allergies Allergen (clinical drug ingredient) Drug/Non Drug Allergy documented on EMR Reaction Allergy Type Onset Date Status Bee Sting/Venom (uncoded) Unknown Allergy 05/29/2018 active Reason For Referral No Information Medications Medication SIG (Take, Route, Frequency, Duration) Notes Start Date End Date Status Ciclopirox 0.77 % 1 application Commercial Lending Vice President ally Once a day 05/29/2023 Active Leflunomide 20 MG 1 tablet Orally Once a day Active Metoprolol Succinate 100 MG 1 capsule Orally Once a day Active Plaquenil 200 MG as directed Orally Active Immunizations Vaccine Route Administration Date Status Comme nts Influenza, high dose seasonal Unknown 05/29/2023 Admini stered Plan Of Treatment No Information Insurance Providers Payer Name Payer Address Payer Phone Subscriber Number Group Number Insured Name Patient Relationship to Insured Coverage Start Date Coverage End Date [facility] [place] [employer] [facility] [address] [place], [place] [id number] ARIELLA CACERES Self - patient is the insured Medical (General) History Medical History History ICD Code Arthritis rheumatoid arthritis Back Trouble hypertension Surgical History Surgery Date(Month/Year) appendectomy Hysterectomy
--- OUTSIDE RECORDS SUMMARY | 2024-12-10 08:31 | XMS_ITS | Data Portability ---
Author Organization [facility], [address] [place] [address] [place]rology ([place]) Address [address] [address] Care Team Providers Care Piece Presser Name Role Phone REBEKAH SYLVESTER Primary Care Provider LUCAS HERNANDEZ Referring Provider Assessment Encounter Date Assessment Date Assessment LastModified by Organization Details LastModified Time 09/17/2024 09/17/2024 The history and physical dated completed by has been reviewed, the patient has been examined and no change has occurred in the patient s condition since the history and physical was completed. [email or web address] Not available 09/17/2024 04:29:15 09/30/2024 09/30/2024 [id number]- custom R hand based orthosis for R RF and R SF Diagnosis: Synovectomy & excision RA nodules index & small , tendon re-alignment extensor tendons ring & small @ MCP joint Physician: Dr. Nye Onset/Surgery: 09-17-24 Patient seen this date per physician's request to be fit with a custom orthosis. A formal evaluation was not completed on this date as orders were for Orthosis application only. Fabricated and fit the patient with the above splint positioning the patient in R hand based orthosis for RF and SF with PIP and DIPs free. The patient was provided with verbal instructions in proper wear and care of Orthosis. The patient is to utilize the Orthosis at all times removing for hygiene only. Appropriate fit of Orthosis achieved with no complaints by this patient. The patient verbalized and demonstrated understanding and independence in application and use of Orthosis. Treatment Goals (To be met in one visit) Fit the patient Orthosis as prescribed by the physician to provide proper positioning and support of R RF and SF to minimize stress and promote healing of involved structures. Provide verbal instruction in Orthosis with proper wear/care of Orthosis to ensure independence and compliance. The patient demonstrated and verbalized independence in a home program. The above treatment goals were met. Patient discharged from direct occupational therapy services at this time. The patient instructed to contact this department if questions or problems regarding use of fit of Orthosis arise. sergio Not available 09/30/2024 15:23:54 09/30/2024 09/30/2024 The patient is doing well after the surgical procedures on her right hand for her rheumatoid arthritis. She is sent to occupational therapy for a splint, which she is going to wear for a month full-time except to shower or wash her hands. The splint will immobilize the MCP joints of the ring and small fingers. She can work on active range of motion of the other joints. She will be reevaluated in a month. [email or web address] Not available 10/03/2024 13:32:55 11/01/2024 11/01/2024 I think the patient overall is doing pretty well after the surgical procedures on her right hand for rheumatoid arthritis. There is some persistent ulnar deviation of the ring and small MCP joints but the extensor tendons are well centralized and she has good range of motion of these fingers. She can use her arm and hand as tolerated during the day. She is going to have a splint fabricated to wear to correct the ulnar deviation of her MCP joints at night and to hold them in a neutral position. She will be reevaluated in 6 weeks. [email or web address] Not available 11/04/2024 05:01:27 Plan of Treatment Reminders Order Date Submit Date Provider Last Modified By Organization Details Last Modified Time Details Appointments Johanna [facility] Patient 15.EST 2024 11:00A M Dr. Sergio Nye Not available Not available Not available Johanna amanda Patient 15.EST 2024 01:30P M Dr. Lucas Hernandez Not available Not available Not available Lab None recorded . Referral occupati onal therapis t referral - hand based orthopla st ulnar gutter splint to correct ulnar deviatio n ring and small MCP joints, include PIP joints, full extensio n, wear at night 2024 025 [email or web address] [facility], [address] [facility], [place], [address], 11/01/2024 14:59:58 Procedures None recorded . Surgeries None recorded . Imaging None recorded . Medication Orders None recorded . Patient TargetsNo targets recorded. Patient InstructionsNo instructions recorded. Reason for Referral Occupational Therapist Refer [facility] for Seropositive rheumatoid arthritis hand based orthoplast ulnar gutter splint to correct ulnar deviation ring and small MCP joints, include PIP joints, full extension, wear at night Referring Physician: Sergio Nye, Orthopedics, Encounter Date: 11/01/2024 Results Created Date Observation Date Name Description Value Unit Range Abnormal Flag Note LastModifiedBy Organization Detail LastModifiedTime 09/18/1909/22/2024 surgi artie patho logy study tissue exam biopsy [facility] [address],[place] [address] Ph. [phone] Frank Moses MD, PhD, [facility] al [facility] SERGIO SCOTT MD nt: JENN DOBBS e ID: [id number] Repor t Statu s: Final :0 1960 Case #: [id number] Age: 64 Y Gende r: F Date Colle cted: 09/17 MRN # : [id number] Date Recei mckenzie: 09/20 Repor azul Date: 09/22 FINAL DIAGN OSIS: A. Soft tissu e, right small and ring exten sor tendo n synov itis, excis ion: - Rheum atoid synov itis and Rheum atoid nodul e B. Soft tissu e, right index finge r nodul e, excis ion: - Rheum atoid nodul e Elect suki hernandez Vermatt ied by Serjio Abdalla MD Elect suki bauer 09/22 10:48 SPECI MEN SOURC E: A. Soft tissu e, right small and ring exten sor tendo n synov itis, excis ion B. Soft tissu e, right index finge r nodul e, excis ion GROSS DESCR IPTIO N: The speci men conta iner( s) and requi sitio n have the same patie nt name. A. Recei mckenzie in 10% neutr al buffe red forma oneyda for forma oneyda-f ixed paraf fin-e mbedd ed secti ons label ed A, right small and ring exten sor tendo n synov itis are multi ple fragm ents of grace- starks soft tissu e aggre gatin g to 4.0 x 3.8 x 0.4 cm. The speci men is entir deepika submi tted for histo logic study in five casse ttes. B. Recei mckenzie in 10% neutr al buffe red forma oneyda for forma oneyda-f ixed paraf fin-e mbedd ed secti ons label ed B, right index finge r nodul es is a singl e fragm ent of grace- starks soft tissu e that is 1.6 x 1.0 x 1.0 cm. The speci men is trise cted and entir deepika submi tted for histo logic study in one casse tte. CLINI ARTIE INFOR MATIO N: Rheum atoid nodul e, pain. Not Available Mo Only - [facility] [address], [address], 09/22/2024 11:59:42 Result Notes None recorded. Problems Name Problem SNOMED Code Status Onset Date Resolution Date Notes Provider Name and Address Organization Details Recorded Time Essential hypertensio n 14630057 Active 2023 Valdo thapa [facility] 4 16:40:48 High risk drug monitoring Active 2023 Valdo thapa [facility] 4 10:16:24 Seropositiv e rheumatoid arthritis 987379534 Active 2023 Lucas Hernandez MD [address] [place] [address], [phone] [place] [address] 5 17:25:08 Pain of bilateral hands 8726332976871 9109 Active 2024 [facility] 5 09:54:19 Bilateral rheumatoid nodule of subcutaneou s tissue of hands 7102515292377 9101 Active 2024 [facility] 5 17:04:20 Rheumatoid nodule of subcutaneou s tissue of left hand 1151237952146 00 Active 2024 [facility] 5 17:01:35 Osteoarthri tis 442575184 Active 2023 [facility] 4 14:38:47 Ribonucleop rotein antibody detected 306199798 Active 2023 [facility] 4 14:39:23 Pain in left thumb 0126954182924 100 Active 2024 Lucas Hernandez MD [address] [place] [address], [phone], [facility] 5 17:24:57 Generalized osteoarthri tis 465669046 Active 2024 Lucas Hernandez MD [address] [place] [address], [phone], [facility] 5 17:25:16 Rheumatoid nodule of subcutaneou s tissue of right hand 6702257008137 01 Active 2024 Caitlyn Bolivar [facility] 5 15:53:52 Problem Notes None recorded. Procedures Surgical History Date Name Laterality Status Provider Name and Address Organization Details Recorded Time 09/18/19 25 SC Operative Report completed Sergio Nye MD [address] [place] [address], [phone], [facility] 09/19/2024 08:32:09 09/18/19 25 excision of hand lesion completed Meche Bynum [facility] 09/24/2024 12:45:11 09/18/19 25 extensor tendon realignment of hand completed [facility] 09/24/2024 12:45:23 09/18/19 25 excision of finger joint synovium completed [facility] 09/24/2024 12:45:37 08/03/19 25 excision of hand lesion completed [facility] 08/09/2024 14:55:52 Appendectomy completed Not Available Health Note 09/18/2023 17:25:20 Colonoscopy with biopsy completed Not Available Health Note 09/18/2023 17:25:20 Partial hysterectomy completed Not Available Health Note 09/18/2023 17:25:20 Total hysterectomy completed Not Available Health Note 09/18/2023 17:25:20 Imaging Results None recorded. Procedure Notes None recorded. Medical Equipment None Reported. Allergies Allergen ID Allergen Name Allergen Category Reaction Reaction Severity Criticality Documentation Date Start Date Code Code System Note Provider Name and Address Organization Details Recorded Time 0793188 honey bee venom environme nt anaphylax is Not available Not available 07/02/20232009 11485 7 RxNorm React ion: Anaph ylaxi s; Swell ing; Comme nt: Bee sting ; Josselyn Black [facility] 5 16:29:00 1236974 wasp venoms environme nt Not available Not available Not available 09/15/2024 91965 RxNorm Josselyn Black [facility] 5 16:28:48 No known drug allergies Medications Name Sig Start Date Stop Date Status Note LastModified by Organization Details LastModified Time amoxicill in 500 mg capsule 01/20 completed d/c date unknown Not Available Not Available Not Available hydrocodo ne 5 mg-acetam inophen 325 mg tablet Take 1-2 tablet(s ) EVERY 6 HOURS by oral PRN for pain. 2024 active Not Available Not Available Not Avai lable metoprolo l succinate ER 100 mg tablet,ex tended release 24 hr TAKE 1 TABLET DAILY active Not Available Not Available No t Available leflunomi de 10 mg tablet Take 1 tablet every day by oral route. 12/07 completed Not Available Not Available Not Available leflunomi de 20 mg tablet TAKE 1 TABLET DAILY. 2024 active Not Available Not Available Not Avai lable irbesarta n 150 mg tablet TAKE 1 TABLET TWICE DAILY active Not Available Not Available No t Available hydroxych loroquine 200 mg tablet Take 1 tablet twice a day by oral route. 09/24 completed Not Available Not Available Not Available collagen 08/12 completed Not Available Not Available Not Available Centrum Silver Women take 1 tablet daily 08/12 completed Not Available Not Available Not Available turmeric active Not Available Not Avai lable Not Available omega-3 900 mg-dha 320 mg-epa 580 mg-fish oil 1,360 mg capsule Take 1 capsule every day by oral route. active Not Available Not Available No t Available Lipo-Flav onoid active Not Available Not Available Not Available Vitals None Recorded Social History Question Answer Notes LastModified by Organizat ion Details LastModified Time Do You Have An Advance Directive? Yes [email or web address] Information not available 09/18/2023 What Is Your Level Of Caffeine Consumption? None [email or web address] Information not available 09/18/2023 What Is Your Code Status? Other [email or web address] Information not available 09/18/2023 How Many Times Per Week Do You Exercise? 1-2 Times Per Week [email or web address] Information not available 09/18/2023 When Did You Quit Smoking? 2016 [email or web address] Information not available 09/18/2023 Do You Have A Medical Power Of Campus Manager? No [email or web address] Information not available 09/18/2023 What Was The Date Of Your Most Recent Tobacco Screening? 09/25/2023 [email or web address] Information not available 09/18/2023 What Is Your Relationship Status? [email or web address] Information not available 09/18/2023 Sex: Unknown Functional Status Question Answer Note LastModified by Organizat ion Details LastModified Time How many times per week do you consume alcohol? Less than 1 time per week [email or web address] Information not available 09/18/2023 Do you use any illicit or recreational drugs? No [email or web address] Information not available 09/18/2023 What is your level of alcohol consumption? Occasional [email or web address] Information not available 09/18/2023 Are you currently employed? 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 Occasional [email or web address] Information not available 09/18/2023 Mental Status None recorded. Family History Relationship Description Onset Age of this Age Resolved Age Notes LastModified by Organization Details LastModified Time Mother Arthritis [email or web address] Not available 09/18/2023 17:25:19 Mother Diabetes mellitus [email or web address] Not available 2023 17:25:19 Mother Hypertensive disorder [email or web address] Not available 2023 17:25:19 Mother Hypercholest erolemia [email or web address] Not available 2023 17:25:19 Father Hypertensive disorder [email or web address] Not available 2023 17:25:19 Father Hypercholest erolemia [email or web address] Not available 2023 17:25:19 Notes:Mother has arthritis M other has diabetes Mother has high blood pressure Mother has high cholesterol Mother has heart a fib Medical History Condition Response High Blood Pressure Y COPD N Depression N Anxiety Disorder Y Arthritis Y Cancer N Stroke N Fibromyalgia N Kidney Disease N Attention-deficit Hyperactivity Disorder N Thyroid Problems N Anemia N Diabetes N Bleeding Disorder N Hyperlipidemia N Asthma N Seizures N Heart Disease N Osteoporosis N Gynecological HistoryNo gynecological history recorded. Obstetrics History GPAL:G 0 P 0 0 0 0 Past Encounters Encounter ID Performer Location Encounter Start Date Encounter Closed Date Diagnosis/Indication Diagnosis SNOMED-CT Code Diagnosis ICD10 Code Diagnosis Note [id number] Lucas Hernandez MD [facility] [place]gy ([place]) [address] [address] 09/25/2023 15:56:23 09/29/2023 14:42:14 Seropositive rheumatoid arthritis 524164723 M05.9 Osteoarthritis 313441116 M19.90 Dental abscess 916662819 K04.7 Seropositi ve rheumatoid arthritis of multiple joints 3738008312 2541499 M05.89 Long-term drug therapy 413800698 Z79.007 [id number] Lucas Hernandez MD [facility] [place] [place]gy ([place]) [address] [place] [address] 01/22/2024 15:26:30 01/26/2024 11:33:34 Osteoarthritis 723055462 M19.90 Rheumatoid arthritis of multiple joints 626354990 M05.89 Additional diagnosis detail: Other rheumatoid arthritis with rheumatoid factor of multiple sites Long-term current use of drug therapy 883604916 Z79.899 Additional diagnosis detail: Other residential (current) drug therapy Bilateral rheumatoid nodule of subcutaneous tissue of hands 5681913924 2548968 M06.341 M06.342 Additional diagnosis detail: Subcutaneo us rheumatoid nodule of both hands [id number] Sergio Nye MD [facility] Orthoped[facility] cs ([place]) [address] [place] [address] 07/05/2024 13:11:16 07/06/2024 18:29:32 Bilateral rheumatoid nodule of subcutaneous tissue of hands 0230191908 5237679 M06.341 M06.342 [id number] Lucas Hernandez MD [facility] [place] [place]gy ([place]) [address] [place] [address] 08/12/2024 16:13:37 08/15/2024 04:15:46 Pain in left thumb 5896105790 633544 M79.645 Seropositi ve rheumatoid arthritis 411492924 M05.9 Generalize d osteoarthritis 755268571 M15.9 [id number] Sergio Nye MD [facility] Orthopedi ([place]) [address] [place] [address] 08/16/2024 12:40:44 08/16/2024 14:19:17 Postoperative visit 723110258 Z48.89 Removal of sutures done 4665879507 36481 Z48.02 [id number] Willie Marshall MD [facility] ASC OR Anesthesi a ([place]) [address] [place] [address] 09/17/2024 10:29:11 09/24/2024 15:19:13 [id number] Sergio Nye MD [facility] [place]opedi cs ([place]) [address] [place] [address], [address] [place] [address] 09/17/2024 10:29:12 09/20/2024 18:20:39 [id number] Sergio Nye MD [address] Orthopedi cs ([place]) [address] [place] [address] 09/30/2024 11:53:11 09/30/2024 14:00:55 Postoperative visit 371417988 Z48.89 [id number] ARLENE LANDEROS, OTR [address] OT ([place]) [address],[place] [address] 09/30/2024 12:59:11 09/30/2024 14:06:23 Seropositive rheumatoid arthritis 303147213 M05.9 Bilateral rheumatoid nodule of subcutaneous tissue of hands 9898021389 0769289 M06.341 M06.342 [id number] Sergio Nye MD [facility] [place]oped[facility] ([place]) [address] [place] [address] 11/01/2024 13:55:09 11/02/2024 18:29:16 Seropositive rheumatoid arthritis 333521003 M05.9 Postoperative visit 1836 30674 Z48.89 Health Concerns Section Related Observation LastModified by Organization Detai ls LastModified Time None Recorded Concern Status LastModified by Organization Details LastModified Time None Recorded Advance Directives Directive Y: Payers Insurance Date Sequence Insurance Name Policy Number Policy Ramirez Covered Member ID Ramirez Member ID Guarantor Name 06/09/2024 1 [employer] (POS) [id number] Elena Crooks [id number] Elena Crooks 11/01/2024 1 [facility] (MEDICARE REPLACEMENT/A DVANTAGE - HMO) [id number] Elena Crooks [id number] Elena Crooks Notes Date Note Type Note Provider Name and Address Organization Details Recorded Time 5 text/html [facility] PRE-ANESTHETIC EVALUATIONReported bypatient.Reason for Visit:PROPOSED PROCEDURE: Synovectomy, Extensor Tendon Re-Alignment Right Ring & Small MCP Joints, and Excision Rheumatoid Nodules Right Index & Small Fingers; SURGEON: Popeye; PREOP DIAGNOSIS: Rheumatoid nodule, right hand General:Exercise tolerance moderate; Denies SOB, RIOS, PND; Denies chest pain or chest tightness; Obesity Cardiac:Denies any cardiopulmonary disease; Hypertension Vascular:H/O DVT Pulmonary:Respiratory system at baseline Musculoskeletal:Osteoart hritis; Rheumatoid arthritis Hem/Onc:Factor V Def Prior Anesthetic Complication:no history of anesthesia complications Family Anesthetic Hx:no history of anesthesia complications Testing/ResultsCBC Date: 08/16/24; HBG results: 13.4; HCT results: 40.0; Platelets results: 304; BMP/CMP Date: 08/16/24; BUN results: 25; Creatine results: 0.8; Potassium results: 4.3 Physical Exam: AirwayMP III; Retrognathic; Limited mouth opening TeethCrowns NeckFull range of motion CardiovascularIrregular rhythm (PVCs?) RespiratoryClear to auscultation bilaterally; No wheeze noted GastrointestinalNPO status >6 hrs solids, >2 hrs clear liquids Vital Signs:Vital signs reviewed. Please refer to nursing preop note for values Assessment:ASA PS: III Plan:General Premed:Meclizine; Tylenol Discussion:I have discussed with the patient the anesthetic plan, alternatives, pertinent risks, and complications; including but not limited to PONV, dental injury, sore throat, MT, stroke, etc. All questions were answered. Patient verbalize(s) understanding and agree(s) to proceed. Drew Marshall MD [facility] [place] [address], [phone], [facility] 09/17/2024 12:11:37 5 text/html Elena Kasper a 64 year oldfemalepresenting for care. Elena is seen today after synovectomy and extensor tendon realignment of the right ring and small metacarpophalangeal joint areas, synovectomy right small finger proximal interphalangeal joint and excised rheumatoid nodule right index finger. All of these issues were related to chronic rheumatoid arthritis. Her pain is well-controlled. She has no complaints of numbness and tingling in her hand. Sergio Nye MD [address] [place] [address], [phone], [facility] 10/04/2024 06:09:08 5 text/html Elena Kasper a 64 year oldfemalepresenting for care. Elena returns for follow-up after synovectomy right ring and small MCP joints with extensor tendon realignment, synovectomy right small proximal interphalangeal joint and excised rheumatoid nodule right index finger. Her pain is well-controlled. She feels she has pretty good range of motion. She does have some persistent deformity at the ring and small metacarpal phalangeal joints. She has been wearing a splint as instructed. She has no complaints of numbness and tingling in her fingers. Sergio Nye MD [address] [facility], [place], [address], [facility] 11/05/2024 05:22:02 OBGyn Episode No OBEpisode recorded.
--- NOTE | 2024-12-10 08:35 | ED_ITS ---
HPI - Fall General Chief Complaint: Dizziness Stated Complaint: fall; dizzy and nauseous Time Seen by Provider: 12/10/24 08:35 Source: patient and family Mode of arrival: wheelchair Limitations: no limitations History of Present Illness HPI Narrative: Patient is a 64-year-old female with a syncopal episode and a collapse earlier this week 3 days ago. He sustained no injuries. No head or neck injuries. She proceeded to get dizzy/ disequilibrium sensation and that his continued until this time so she came for further advice and evaluation. No neurological other changes such as motor or sensory deficits. Ground level fall. Patient was taking a long walk and very sweaty and it was very hot outside right before her event occurred. complaint: fall Onset (ago): day(s) ( Three) Fall from: standing Fall witnessed: no Place fall occurred: home Loss of consciousness: yes Length of LOC: second(s) Prolonged down time: no Symptoms prior to fall: lightheadedness, dizziness and palpitations ( chronic sensation) Context: new medication ( weight loss medication [id number]) and other ( patient had a dizziness event and proceeded to have a collapse and syncopal episode for seconds at home) Location of injury: other ( no injuries) Severity: moderate Severity scale (1-10): 2 Quality: other ( no pain) Associated symptoms (after fall): other ( associated nausea with dizziness without vomiting) Related Data Home Medications ?Medication ?Instructions ?Recorded ?Confirmed ?Last Taken ?Type multivitamin 1 tablet PO DAILY 07/31/20 12/10/24 Unknown History omega-3 acid ethyl esters PO 07/31/20 03/05/24 Unknown History Allergies Allergy/AdvReac Type Severity Reaction Status Date / Time No Known Allergies Allergy Verified 12/10/24 08:51 Review of Systems 2 Review of Systems: All systems reviewed & are unremarkable except as noted in HPI and below Constitutional: Constitutional: Reports no additional constitutional complaints Eyes: Eyes: Reports no additional eye complaints ENT: Reports system reviewed and no additional complaints, except as documented Cardiovascular: Cardiovascular: Reports no additional cardiovascular complaints Respiratory: Respiratory: Reports no additional respiratory complaints Gastrointestinal: Gastrointestinal: Reports no additional gastrointestinal complaints Genitourinary: Genitourinary: Reports no additional female genitourinary complaints Musculoskeletal: Musculoskeletal: Reports no additional musculoskeletal complaints Integumentary/Breasts: Skin/Breast: Reports system reviewed and no additional complaints, except as docu Neurologic: Reports system reviewed and no additional complaints, except as documented Psychiatric: Psychiatric: Reports no additional psychiatric complaints Endocrine: Endocrine: Reports no additional endocrine complaints Hematologic/Lymphatic: Hematologic/Lymphatic: Reports no additional hematologic/lymphatic complaints Allergic/Immunologic: Allergic/Immunologic: Reports no additional allergic/immunologic complaints PMFSH Past Medical History Medical History Left sided sciatica Acquired left foot drop Rheumatoid arthritis, seropositive, multiple sites (~2005) Arthritis Anxiety Healthcare maintenance Bilateral bunions Mixed connective tissue disease Hypertension Surgical History Surgical History History of salpingectomy Hx of removal of ovary History of hysterectomy 1996 History of appendectomy Family History Family History Mother Diabetes mellitus Heart disease Unknown Hypertension Hyperlipidemia Arthritis Neuropathy Social History Social History Smoking status: Former smoker (quit in 2015) Additional smoking assessment comments: Quit 2015. 40 pack-year history Alcohol intake: current Alcohol use details: Wine Occasionally. Substance use: never Occupation/Education: retired Additional occupation/education comments: Prior Occupation: [employer] 2 Const: General: healthy appearing Nutritional Appearance: well nourished Orientation/consciousness: patient oriented x3 Limitations: no limitations HENMT: Head: normal to inspection Ears: external ears normal F bonnie/Nose/Sinus: Normal external nose present Eyes: Conjunctivae: conjunctivae normal Pupils: Equal, round and reactive pupils present EOM: EOMs intact bilaterally Neck: Neck: normal visual inspection Chest: Chest palpation & inspection: normal inspection of the chest Resp: Effort & Inspection: normal respiratory effort and not labored A uscultation: clear to auscultation bilaterally and no crackles Cardio: Rate: regular rate Rhythm: regular rhythm ( with occasional irregularity) Heart sounds: no murmurs GI: Inspection: non-distended GI Palp: Yes Soft to palpation, No Tenderness to palpation present (GI) and No Guarding due to palpation present (GI) A uscultation: normal bowel sounds : General: Yes bladder normal to palpation Back/Spine/Pelvis: Back: no CVA tenderness Skin: General skin exam: normal color Rashes: no rashes Wounds: no wounds Neuro: General: patient oriented x3, moves all extremities, no meningeal signs, no focal motor deficits and CN's II-XI intact bilaterally Cranial nerves: Yes Nystagmus not present Speech: normal speech Gait exam (Neuro): gait abnormal ( difficulty with gait secondary to disequilibrium) Other: Fast exam is negative, NIH score is 0, GCS is 15 Extrem: General: normal to inspection Psych: Mental Status: mental status grossly normal Affect: Anxious affect present Attitude: cooperative Course Vital Signs Vital signs: Vital Signs Temperature 37.4 C 12/10/24 08:26 Pulse Rate 110 H 12/10/24 08:26 Respiratory Rate 16 12/10/24 08:26 Blood Pressure 140/80 12/10/24 08:26 Pulse Oximetry 96 12/10/24 08:26 Oxygen Delivery Room Air 12/10/24 08:26 Temperature 37.4 C 12/10/24 08:26 Pulse Rate 110 H 12/10/24 08:26 Respiratory Rate 16 12/10/24 08:26 Blood Pressure 140/80 12/10/24 08:26 Pulse Oximetry 96 12/10/24 08:26 Oxygen Delivery Room Air 12/10/24 08:26 MDM - Fall MDM Narrative Medical decision making narrative: patient is a 64-year-old female with dizziness and a syncopal/ collapse ground level fall 3 days ago with continued dizziness. We will do a cardiogenic and neurogenic workup at this time. patient's workup was negative essentially. We gave patient a meclizine and tested her walking abilities to see if that was helpful. We will send her home with meclizine as that was very helpful and resolution of the disequilibrium sensation. Lab Data Attestation: I reviewed the patient's lab results. 12/10/24 08:58 12/10/24 08:58 Labs: Lab Results 12/10/24 12/10/24 Range/Units 08:49 08:58 WBC 7.1 (4.8-10.8) K/mm3 RBC 5.22 (4.20-5.40) M/mm3 Hgb 14.7 H (11.7-13.8) g/dL Hct 45.7 H (35.0-42.0) % MCV 87.5 (78.0-102.0) fL MCH 28.2 (27.0-31.0) pg MCHC 32.2 (32-36) g/dL RDW 12.7 (11.6-14.4) % Plt Count 287 (150-420) K/mm3 MPV 10.3 (9.2-11.8) fl Immature Gran % (Auto) 0.1 H (0.0-0.0) % Neut % (Auto) 54.2 (50.0-70.0) % Lymph % (Auto) 36.1 (18.0-42.0) % [place] % (Auto) 7.5 (2.0-11.0) % Eos % (Auto) 1.3 (1.0-6.0) % Baso % (Auto) 0.8 (0.0-1.0) % Lymph # (Auto) 2.55 (1.10-4.50) K/mm3 [place] # (Auto) 0.53 (0.10-0.90) K/mm3 Eos # (Auto) 0.09 (0.02-0.50) K/mm3 Baso # (Auto) 0.06 (0.00-0.10) K/mm3 Abs Immat Gran (auto) 0.01 H (0.00-0.00) K/mm3 Absolute Neuts (auto) 3.82 (1.70-7.20) K/mm3 Absolute Nucleated RBC 0.00 (0.00-0.00) K/mm3 Nucleated RBC % 0.0 (0-0.0) % Sodium 138 (137-145) mmol/L Potassium 3.8 (3.4-5.0) mmol/L Chloride 110 H (98-107) mmol/L Carbon Dioxide 24 (22-30) mmol/L Anion Gap 4 (4-12) mmol/L BUN 11 (7-17) mg/dL Creatinine 0.60 L (0.7-1.0) mg/dL Estim Creat Clear Calc 86 ml/min Estimated GFR > 60 (59 - ) Glucose 128 H (65-110) mg/dL Calculated Osmolality 287 (285-295) mOsm/kg Lactic Acid 1.3 (0.4-2.0) mmol/L Calcium 9.2 (8.4-10.2) mg/dL Magnesium 1.9 (1.6-2.3) mg/dL Total Bilirubin 0.8 (0.2-1.3) mg/dL AST 34 (14-36) U/L ALT 28 (6-35) U/L Alkaline Phosphatase 105 (38-126) U/L Total Creatine Kinase 97 (30-135) U/L Troponin I < 0.012 (0.000-0.034) ng/mL NT-Pro-B Natriuret Pep 202 H (19.9-100) pg/mL Total Protein 8.0 (6.3-8.2) g/dL Albumin 4.3 (3.5-5.1) g/dL Urine Color Light yellow (Yellow) Urine Appearance Clear (Clear) Urine pH 6.0 (5.0-8.0) Ur Specific [place] 1.020 (1.010-1.020) Urine Protein Negative (Negative) Urine Glucose (UA) Negative (Negative) Urine Ketones Negative (Negative) Ur Blood (Man) Negative (Negative) Urine Nitrate Negative (Negative) Urine Bilirubin Negative (Negative) Urine Urobilinogen 0.2 (0.2-1.0) mg/dL Leukocyte Esterase Rfl Negative (Negative) GATO/UL Imaging Data Attestation: I personally reviewed and interpreted this imaging study as follows: Radiologist's impression: chest x-ray is negative for acute process CT scan of the head was negative for acute process ECG Data EKG #1: Attestation: I personally reviewed and interpreted this ECG as follows: ECG completion date: 12/10/24 ECG completion time: 09:16 EKG Interpretation: tachycardia, sinus rhythm, PVCs, non-specific ST changes, normal QRS, normal QT and NL axis Discharge Plan Discharge Clinical Impression: Near syncope Benign paroxysmal positional vertigo Qualifiers: Laterality: unspecified laterality Qualified Code(s): H81.10 - Benign paroxysmal vertigo, unspecified ear Patient Disposition: Home Condition: Improved Instructions: Benign Paroxysmal Positional Vertigo (ED) Patient Language: Bulgarian Prescriptions: New meclizine 25 mg tablet 25 mg PO TID PRN (Reason: dizziness) Qty: 20 0RF No Action leflunomide 20 mg tablet 20 mg PO DAILY Qty: 90 1RF multivitamin Tablet 1 tablet PO DAILY omega-3 acid ethyl esters PO metoprolol succinate 100 mg tablet extended release 24 hr See Rx Instructions .ROUTE .COMPLEX Qty: 60 0RF Dose Instruction: TAKE ONE TABLET BY MOUTH DAILY Rx Instructions: TAKE ONE TABLET BY MOUTH DAILY irbesartan 150 mg tablet See Rx Instructions .ROUTE .COMPLEX Qty: 90 0RF Dose Instruction: TAKE ONE TABLET BY MOUTH DAILY Rx Instructions: TAKE ONE TABLET BY MOUTH DAILY Follow-up/Referrals: Declan Pat DO [Primary Care Provider] - Time of Disposition: 11:27
--- NOTE | 2024-12-10 08:46 | ECG_ITS ---
Test Date: 2024-12-10 08:57:21 Measurements Intervals [place] Rate: 100 P: 95 WA: 143 QRS: 51 QRSD: 77 T: 76 QT: 337 QTc: 435 Interpretive Statements SINUS TACHYCARDIA WITH OCCASIONAL VENTRICULAR PREMATURE COMPLEXES MODERATE ST DEPRESSION [0.05+ mV ST DEPRESSION] No previous ECG available for comparison Electronically Signed On 12-10-2024 22:29:39 CDT by Sachin Gamboa M.D.
--- OUTSIDE RECORDS SUMMARY | 2024-12-10 09:04 | XMS_ITS | Clinical Summary ---
Author Organization [facility] Address [address] [place] [id number] Care Team Providers Care Manager Games Name Role Phone Unavailable Primary Care Provider [...]
[2024-12-10 09:05] LABS: Hematocrit 45.7 % (35.0-42.0); Hemoglobin 14.7 g/dL (11.7-13.8); Immature Granulocyte Percent A 0.1 % (0.0-0.0); Lymphocytes Absolute Auto 2.55 K/mm3 (1.10-4.50); Mean Corpuscular HGB Conc 32.2 g/dL (32-36); Mean Corpuscular Hemoglobin 28.2 pg (27.0-31.0); Mean Corpuscular Volume 87.5 fL (78.0-102.0); Nucleated Red Blood Cells Absolute Auto 0.00 K/mm3 (0.00-0.00); Nucleated Red Blood Cells Perc 0.0 % (0-0.0); Platelet Count Result 287 K/mm3 (150-420); Red Blood Count 5.22 M/mm3 (4.20-5.40); White Blood Count 7.1 K/mm3 (4.8-10.8)
[2024-12-10 09:19] LABS: Alanine Aminotransferase 28 U/L (6-35); Albumin Level 4.3 g/dL (3.5-5.1); Alkaline Phosphatase 105 U/L (38-126); Anion Gap 4 mmol/L (4-12); Aspartate Amino Transferase 34 U/L (14-36); Bilirubin,Total 0.8 mg/dL (0.2-1.3); Blood Urea Nitrogen 11 mg/dL (7-17); Calcium 9.2 mg/dL (8.4-10.2); Carbon Dioxide 24 mmol/L (22-30); Chloride 110 mmol/L (98-107); Creatine Kinase 97 U/L (30-135); Estimated CRCL calculation 86 ml/min; Estimated Glomerular Filt Rate > 60; Glucose 128 mg/dL (65-110); Magnesium 1.9 mg/dL (1.6-2.3); Osmolality Calculated 287 mOsm/kg (285-295); Potassium 3.8 mmol/L (3.4-5.0); Sodium 138 mmol/L (137-145); Total Protein 8.0 g/dL (6.3-8.2)
[2024-12-10 09:27] LABS: NT Pro B Type Natriuretic Pept 202 pg/mL (19.9-100)
[2024-12-10 09:31] LABS: Troponin I < 0.012 ng/mL (0.000-0.034)
[2024-12-10 10:08] LABS: Add Urine Microscopic? NO; Appearance Urine Clear (Clear); Glucose Urine UA Negative (Negative); Leukocyte Esterase Ur Negative LEU/UL (Negative); Nitrate Urine Negative (Negative); Specific Grav Ur 1.020 (1.010-1.020)
[2024-12-10] MEDS: MECLIZINE HCL 25 MG TABLET PO (11:04)
== END 2024-12-10 11:41 | disposition home or self-care (01) ==
PROVIDERS: Emergency Provider Emergency Medicine; PCP Family Medicine
DX: R55 Syncope and collapse (principal); H81.10 Benign paroxysmal vertigo, unspecified ear; I10 Essential (primary) hypertension; Z87.891 Personal history of nicotine dependence; Z20.822 Contact with and (suspected) exposure to COVID-19; W18.30XA Fall on same level, unspecified, initial encounter
CPT/HCPCS: 36415; 70450; 71046; 80053; 81003; 82550; 83605; 83735; 83880; 84484; 85025; 93005; 99284; A9270

== ENCOUNTER 2025-03-10 10:03 | Outpatient (CLI) | payer MEDICARE, SELFPAY ==
[2025-03-10 11:08] LABS: HIV 1 P24 AG Negative (Negative); HIV 1/2 AB Negative (Negative)
[2025-03-11 06:53] LABS: Syphilis IgG/IgM Antibody Non-Reactive (Nonreactive)
[2025-03-11 07:09] LABS: HSV 1 IgG, Type Spec Reactive (Non Reactive); HSV 2 IgG, Type Spec Reactive (Non Reactive)
== END 2025-03-10 10:04 | disposition home or self-care (01) ==
LOC: CHSLAB 10:05
PROVIDERS: PCP Family Medicine; Visit Provider Nurse Practitioner Family
DX: Z11.3 Encounter for screening for infections with a predominantly sexual mode of transmission (principal); A63.0 Anogenital (venereal) warts
CPT/HCPCS: 36415; 86593; 86695; 86696; 86803; 87340; 87806

== ENCOUNTER 2025-04-22 13:32 | Outpatient (CLI) | payer MEDICARE, SELFPAY ==
--- OUTSIDE RECORDS SUMMARY | 2025-03-10 05:30 | XMS_ITS ---
Author Organization [facility] Address [address] [place], [place] [address] Care Team Providers Care Space Officer Name Role Phone FUNMILAYO NARVAEZ Unavailable [phone] Declan Pat Unavailable Unavailable DOMO PENA Unavailable [phone] Allergies Allergen (clinical drug ingredient) Drug/Non Drug Allergy documented on EMR Reaction Allergy Type Onset Date Status Bee Sting/Venom (uncoded) Unknown Allergy 05/29/2018 active REASON FOR VISIT *Callus Care Medications Medication SIG (Take, Route, Frequency, Duration) Notes Start Date End Date Status Plaquenil 200 MG Tablet as directed Orally Active Leflunomide 20 MG Tablet 1 tablet Orally Once a day Active Metoprolol Succinate 100 MG Capsule ER 24 Hour Sprinkle 1 capsule Orally Once a day Active Ciclopirox 0.77 % Gel 1 application Exte rnally Once a day 05/29/2023 Active Social History Social History Additional Details Category Social Info Options Details Migrated Social History Migrated Social History History of tobacco use : , Smoking Status : Former smoker Vital Signs Height 65 in 03/10/2025 Weight 190 lbs 03/10/2025 BMI 31.61 kg/m2 03/10/2025 Height-cm 165.1 cm 03/10/2025 Weight-kg 86.18 kg 03/10/2025 Encounters Encounter Location Date Provider Diagnosis [address] [id number] 03/10/2025 DOMO PENA Other hammer toe(s) (acquired), right foot M20.41 ; Other hammer toe(s) (acquired), left foot M20.42 ; Acquired keratosis [keratoderma] palmaris et plantaris L85.1 ; Unspecified atherosclerosis of [place] arteries of extremities, bilateral legs I70.203 ; Pain in left foot M79.672 ; Congenital pes cavus, right foot Q66.71 and Congenital pes cavus, left foot Q66.72 Assessments Encounter Date Diagnosis (ICD Code) Assessment Notes Treatment Notes Treatment Clinical Notes Section Notes 03/10/2025 Other hammer toe(s) (acquired), right foot (ICD-10 - M20.41) The patient was educated regarding how to mechanically stabilize their deformity. The patient was given education about shoe recommendations specific for the condition. The patient was educated about custom orthotics and how appropriate shoes and orthotics can prevent further worsening of the deformity. The patient was educated about how bad shoe habits can worsen the condition. NSAIDS, P.T., injections and other conservative treatments were discussed. Both surgical and non surgical treatments were discussed, but conservative options were emphasized. 03/10/2025 Other hammer toe(s) (acquired), left foot (ICD-10 - M20.42) 03/10/2025 Acquired keratosis [keratoderma] palmaris et plantaris (ICD-10 - L85.1) left foot x 2 debrided sharply down to the level of healthy tissue using a 15 blade. After removal of overlying extensive hyperkeratosis, healthy tissue was noted and care was taken to assure that no undermining or probing was present. It should be noted that no probing was noted and no infection or drainage was noted. 03/10/2025 Unspecified atherosclerosis of [place] arteries of extremities, bilateral legs (ICD-10 - I70.203) Patient educated on risks and aggravating factors of PVD, including conservative treatment options such as a diet and exercise regimen to aid in slowing progression of vascular disease 03/10/2025 Pain in left foot (ICD-10 - M79.672) 03/10/2025 Congenital pes cavus, right foot (ICD-10 - Q66.71) Cavus Foot: Discussed treatment options with the patient and answered questions. Discussed appropriate shoes, arch supports, and custom orthotics. PowerStep Inserts fir well 03/10/2025 Congenital pes cavus, left foot (ICD-10 - Q66.72) Plan Of Treatment Treatment Notes Assessment Notes Other hammer toe(s) (acquired), right fo ot The patient was educated regarding how to mechanically stabilize their deformity. The patient was given education about shoe recommendations specific for the condition. The patient was educated about custom orthotics and how appropriate shoes and orthotics can prevent further worsening of the deformity. The patient was educated about how bad shoe habits can worsen the condition. NSAIDS, P.T., injections and other conservative treatments were discussed. Both surgical and non surgical treatments were discussed, but conservative options were emphasized. Acquired keratosis [keratode rma] palmaris et plantaris left foot x 2 debrided sharply down to t he level of healthy tissue using a 15 blade. After removal of overlying extensive hyperkeratosis, healthy tissue was noted and care was taken to assure that no undermining or probing was present. It should be noted that no probing was noted and no infection or drainage was noted. Unspecified atherosclerosis of [place] arteries of extremities, bilateral legs Patient educated on risks and aggravating factors of PVD, including conservative treatment options such as a diet and exercise regimen to aid in slowing progression of vascular disease Congenital pes cavus, right foot Cavus Foot: Discussed treatment options with the patient and answered questions. Discussed appropriate shoes, arch supports, and custom orthotics. PowerStep Inserts fir well Next Appt Details Follow Up: 3 Months,Joanne CALI on: Provider Name:DOMO HORTA, 05/12/2025 11:20:00 AM, [address] [place] [address], [id number], History and Physical Notes * HPI (History of Present Illness) Category Sub-Category Detail Notes Category Not es HPI Follow Up Visit Patient presents for follow up visit for left foot callus care, Patient states their problem is worse. MA: nd Examination Category Sub-Category Detail Notes Category Not es Physical Examination Vascular: Dorsalis Pedis pulse noted at 1/4 right foot and 1/4 left foot and Posterior Tibial pulse noted at 1/4 right foot and 1/4 left foot, Capillary refill times noted to be less than three seconds x ten, Temperature gradient noted to be warm to cool to bilateral foot, pedal hair present to bilateral foot and no varicosities are noted Dermatologic: there are no open lesions, no signs of active clinical infection, no erythema noted, no ecchymoses, nails are elongated thickened with subungual debris x ten, hyperkeratotic lesion noted sub second metatarsal head left foot and lateral 4th digit Musculoskeletal: there is pain to palpation onto nail plate x ten, no calf pain noted bilaterally, arch height noted at 2/5 non-weight bearing bilaterally, first metatarsophalangeal joint range of motion 30 deg non-weight bearing bilaterally, pain to palpation hyperkeratotic lesion sub second metatarsal head left foot, flexible hammer toe deformity noted to second digit bilateral foot reducible with kelikian push up test Neurology: protective sensation intact to light touch bilateral digits one through five, vibratory sensation intact to first metatarsophalangeal joint bilaterally Progress Notes * JESSICA ARIELLA MAST ADOB: (64 yo F)Acc No.[id number]:03/10/2025 Patient: ARIELLA GONZALEZ Abiodun Provider: Aramis PENA :1960 A ge:64 Y S ex:Female Date:03/10/2025 Address:[address] [place] [address] Subjective: * Chief Complaints: * * Callus Care * HPI: H PI: Follow Up Visit P atient presents for follow up visit for left foot callus care, Patient states their problem is worse. M A: nd. * ROS: G eneral / Constitutional: Patient denies w eakness. R espiratory: Patient denies c hronic cough, shortness of breath, sputum production. C ardiovascular: Patient denies c hest pain, history of [place], irregular heartbeat. M usculoskeletal: Patient denies a rthritis, joint stiffness. ? P eripheral Vascular: Patient denies b lanching of skin, cold extremities, decreased sensation in extremities. S kin: Patient complains of c alluses and corns. N eurologic: Patient denies d izziness, gait abnormality, headache. * Medical History: Arthritis Rheumatoid arthritis Back Trouble Hypertension Medical History Verified * Surgical History: appendectomy Hysterectomy Surgical History verified. * Hospitalization/Major Diagno stic Procedure: Denies Past Hospitalization. Hospitalization Verified. * Family History: F ather: PRN - Father: . M other: PRN - Mother: . F amily History Verified.. * Social History: M igrated Social History: M igrated Social History: History of tobacco use : , Smoking Status : Former smoker. Social History Verified. * Medications: T akingMetoprolol Succinate 100 MG Capsule ER 24 Hour Sprinkle 1 capsule Orally Once a day Leflunomide 20 MG Tablet 1 tablet Orally Once a day Plaquenil 200 MG Tablet as directed Orally Ciclopirox 0.77 % Gel 1 application Externally Once a day Medication List reviewed and reconciled with the patientTaking Metoprolol Succinate 100 MG Capsule ER 24 Hour Sprinkle 1 capsule Orally Once a day Taking Leflunomide 20 MG Tablet 1 tablet Orally Once a day Taking Plaquenil 200 MG Tablet as directed Orally Taking Ciclopirox 0.77 % Gel 1 application Externally Once a day Medication List reviewed and reconciled with the patient * Allergies: B ee Sting/Venom: Allergy - Onset Date 05/29/2018yesAllergies Verified. Objective: * Vitals: S hoe Size: 8.5, Wt:190lbs, Wt-k.18 kg, Ht: 65 in, Ht-cm: 165.1 cm, BMI:31.61Index, Body Surface Area: 1.99. * Examination: P hysical Examination: V ascular: Dorsalis Pedis pulse noted at 1/4 right foot and 1/4 left foot and Posterior Tibial pulse noted at 1/4 right foot and 1/4 left foot, Capillary refill times noted to be less than three seconds x ten, Temperature gradient noted to be warm to cool to bilateral foot, pedal hair present to bilateral foot and no varicosities are noted Dermatologic: there are no open lesions, no signs of active clinical infection, no erythema noted, no ecchymoses, nails are elongated thickened with subungual debris x ten, hyperkeratotic lesion noted sub second metatarsal head left foot and lateral 4th digit Musculoskeletal: there is pain to palpation onto nail plate x ten, no calf pain noted bilaterally, arch height noted at 2/5 non-weight bearing bilaterally, first metatarsophalangeal joint range of motion 30 deg non-weight bearing bilaterally, pain to palpation hyperkeratotic lesion sub second metatarsal head left foot, flexible hammer toe deformity noted to second digit bilateral foot reducible with kelikian push up test Neurology: protective sensation intact to light touch bilateral digits one through five, vibratory sensation intact to first metatarsophalangeal joint bilaterally. Assessment: * Assessment: 1. O ther hammer toe(s) (acquired), right foot - M20.41 (Primary) 2 . O ther hammer toe(s) (acquired), left foot - M20.42 3 . A cquired keratosis [keratoderma] palmaris et plantaris - L85.1 4 . U nspecified atherosclerosis of [place] arteries of extremities, bilateral legs - I70.203 5 . P ain in left foot - M79.672? 6. C ongenital pes cavus, right foot - Q66.71 7 . C ongenital pes cavus, left foot - Q66.72 Plan: * Treatment: 2. A cquired keratosis [keratoderma] palmaris et plantaris Notes: l eft foot x 2 debrided sharply down to the level of healthy tissue using a 15 blade. After removal of overlying extensive hyperkeratosis, healthy tissue was noted and care was taken to assure that no undermining or probing was present. It should be noted that no probing was noted and no infection or drainage was noted. 3. U nspecified atherosclerosis of [place] arteries of extremities, bilateral legs Notes: Patient educated on risks and aggravating factors of PVD, including conservative treatment options such as a diet and exercise regimen to aid in slowing progression of vascular disease 4. C ongenital pes cavus, right foot Notes: Cavus Foot: Discussed treatment options with the patient and answered questions. Discussed appropriate shoes, arch supports, and custom orthotics. PowerStep Inserts fir well * Follow Up: 3 Months, Billing Information: * Visit Code: 88970 Office Visit, Est Pt., Level 3. * Electronic signature of LEIGHTON PENA DPM on 04/22/2025 at 01:35 PM ACCOUNT AUDITOR Sign off status: Pending * Provider: Aramis PENA Date: Generated for Vandana waldron/Amador/Macy on: 06/22/2024 01:35 PM ACCOUNT AUDITOR
--- NOTE | ~2025-04-22 | CT_ITS ---
EXAMINATION: CT lung screening DATE: 04/22/2025 13:45 INDICATION: Z87.891 - Personal history of nicotine dependence TECHNIQUE: Computed tomography (CT) of the chest was performed without intravenous contrast. Additional 3D reconstructions utilizing coronal maximum intensity projection (MIP) were performed. Automated exposure control and iterative reconstruction technique were employed. The dose-length product was 96 .98 mGy-cm. COMPARISON: None FINDINGS: 5 mm subpleural nodule right middle lobe. No other pulmonary nodules, pneumonia, pulmonary edema or pleural effusion. Heart size is normal. Small amount of atherosclerotic coronary artery calcific location. No pericardial effusion. Thoracic aorta is normal in caliber. No pathologically enlarged thoracic lymphadenopathy. Visualized upper abdomen is unremarkable. Mild thoracic spondylosis. IMPRESSION: 1. Lung-RADS category 2: Benign appearance or behavior. Continue annual screening with noncontrast low-dose chest CT in 12 months. Reviewed, dictated and finalized at location A. CTOR EQUIPMENT IMPRESSION: 1. Lung-RADS category 2: Benign appearance or behavior. Continue annual screeni ng with noncontrast low-dose chest CT in 12 months.
--- OUTSIDE RECORDS SUMMARY | 2025-04-22 13:36 | XMS_ITS | Clinical Summary ---
Author Organization [facility] Address [address] [place] [address] Care Team Providers Care Branch Service Specialist Name Role Phone Unavailable Primary Care Provider [...] 2009 Zoster Vaccines (1 of 2) 2009 Dexa Scan (General) 2024 COVID-19 Vaccine ( - 2024-2 6 season) 2025 Influenza Adult (#1) 2025 RSV Immunization or 60+ Years (1 - 1-dose 75+ series) 2034 Hepatitis A Vaccines Aged Out No long er eligible based on patient's age to complete this topic Meningococcal B Vaccine Aged Out No l onger eligible based on patient's age to complete this topic Meningococcal Vaccine Aged Out No suman william eligible based on patient's age to complete this topic RSV Immunizations Under 20 Months Aged Out No longer eligible based on patient's age to complete this topic
--- OUTSIDE RECORDS SUMMARY | 2025-04-22 13:36 | XMS_ITS | Patient Health Record ---
Author Organization [facility] Address [address] [place], [place] [address] Care Team Providers Care Astronaut Mission Specialist Name Role Phone FUNMILAYO NARVAEZ Unavailable [phone] Declan Pat Unavailable Unavailable DOMO PENA Unavailable [phone] Allergies Allergen (clinical drug ingredient) Drug/Non Drug [...] Exte rnally Once a day 05/29/2023 Active Immunizations Vaccine Route Administration Date Status Comme nts Influenza, high dose seasonal Unknown 05/29/2023 Admini stered Social History Social History Additional Details Category Social Info Options Details Migrated Social History Migrated Social History History of tobacco use : , Smoking Status : Former smoker Vital Signs Height-cm 165.1 cm 03/10/2025 Weight-kg 86.18 kg 03/10/2025 Height 65 in 03/10/2025 Weight 190 lbs 03/10/2025 BMI 31.61 kg/m2 03/10/2025 Encounters Encounter Location Date Provider Diagnosis [address] [id number] 03/10/2025 DOMO PENA Other hammer toe(s) (acquired), right foot M20.41 ; Other hammer toe(s) (acquired), left foot M20.42 ; Acquired keratosis [keratoderma] palmaris et plantaris L85.1 ; Unspecified atherosclerosis of [place] arteries of extremities, bilateral legs I70.203 ; [...] drainage was noted. 03/10/2025 Unspecified atherosclerosis of [place] arteries of extremities, bilateral legs (ICD-10 - [...] foot (ICD-10 - Q66.72) Plan Of Treatment Next Appt Details Provider Name:DOMO V ALEXANDRIA HORTA, 05/12/2025 11:20:00 AM, [address] [place] [address], [id number], Insurance Providers Payer Name Payer Address Payer Phone Subscriber Number Group Number Insured Name Patient Relationship to Insured Coverage Start Date Coverage End Date [facility] [address] [address] [place] [id number] ARIELLA CACERES Self - patient is the insured Medical (General) History Medical History History ICD Code Arthritis rheumatoid arthritis Back Trouble hypertension Surgical History Surgery Date(Month/Year) appendectomy Hysterectomy
== END 2025-04-22 13:33 | disposition home or self-care (01) ==
LOC: CHSIMG 13:33
PROVIDERS: PCP Family Medicine; Visit Provider Family Medicine
DX: Z12.2 Encounter for screening for malignant neoplasm of respiratory organs (principal); Z87.891 Personal history of nicotine dependence
CPT/HCPCS: 71271

== ENCOUNTER 2025-05-05 07:06 | Outpatient (CLI) | payer MEDICARE, SELFPAY ==
--- OUTSIDE RECORDS SUMMARY | 2025-03-10 05:30 | XMS_ITS ---
Author Organization [facility] Address [address] [place], [place] [address] Care Team Providers Care Yarn Salvager Name Role Phone FUNMILAYO NARVAEZ Unavailable [phone] Declan Pat Unavailable Unavailable DOMO PENA Unavailable [phone] Allergies Allergen (clinical drug ingredient) Drug/Non Drug [...] 03/10/2025 Encounters Encounter Location Date Provider Diagnosis [address] [id number] 03/10/2025 DOMO PENA Other hammer toe(s) (acquired), right foot M20.41 ; Other hammer toe(s) (acquired), left foot M20.42 ; Acquired keratosis [keratoderma] palmaris et plantaris L85.1 ; Unspecified atherosclerosis of [place] arteries of extremities, bilateral legs I70.203 ; [...] drainage was noted. 03/10/2025 Unspecified atherosclerosis of [place] arteries of extremities, bilateral legs (ICD-10 - [...] or drainage was noted. Unspecified atherosclerosis of [place] arteries of extremities, bilateral legs Patient educated [...] on: Provider Name:DOMO HORTA, 05/12/2025 11:20:00 AM, [address] [place] [address], [id number], History and Physical Notes * HPI (History [...] JESSICA ARIELLA MAST ADOB: (64 yo F)Acc No.[id number]:03/10/2025 Patient: ARIELLA GONZALEZ Abiodun Provider: Aramis PENA :1960 A ge:64 Y S ex:Female Date:03/10/2025 Address:[address] [place] [address] Subjective: * Chief Complaints: * * Callus [...] Patient denies c hest pain, history of [place], irregular heartbeat. M usculoskeletal: Patient denies a [...] L85.1 4 . U nspecified atherosclerosis of [place] arteries of extremities, bilateral legs - I70.203 [...] was noted. 3. U nspecified atherosclerosis of [place] arteries of extremities, bilateral legs Notes: Patient [...] 3 Months, Billing Information: * Visit Code: 54144 Office Visit, Est Pt., Level 3. * Electronic signature of LEIGHTON PENA DPM on 05/05/2025 at 07:09 AM REGIONAL ENGINEER Sign off status: Pending * Provider: Aramis PENA Date: Generated for Vandana waldron/Amador/Macy on: 07/06/2024 07:09 AM REGIONAL ENGINEER
--- OUTSIDE RECORDS SUMMARY | 2025-05-05 07:10 | XMS_ITS | Patient Health Record ---
Author Organization [facility] Address [address] [place], [place] [id number] Care Team Providers Care Hospice Chaplain Name Role Phone FUNMILAYO NARVAEZ Unavailable [phone] Declan aPt Unavailable Unavailable DOMO PENA Unavailable [phone] Allergies Allergen (clinical drug ingredient) Drug/Non Drug [...] Encounters Encounter Location Date Provider Diagnosis [address] [id number] 03/10/2025 DOMO PENA Other hammer toe(s) (acquired), right foot M20.41 ; Other hammer toe(s) (acquired), left foot M20.42 ; Acquired keratosis [keratoderma] palmaris et plantaris L85.1 ; Unspecified atherosclerosis of [place] arteries of extremities, bilateral legs I70.203 ; [...] drainage was noted. 03/10/2025 Unspecified atherosclerosis of [place] arteries of extremities, bilateral legs (ICD-10 - [...] Name:DOMO V ALEXANDRIA HORTA, 05/12/2025 11:20:00 AM, [address] [place] [address], [id number], Insurance Providers Payer Name Payer Address Payer Phone Subscriber Number Group Number Insured Name Patient Relationship to Insured Coverage Start Date Coverage End Date [facility] [address] [address] [place] [address] [id number] ARIELLA CACERES Self - patient is the insured Medical (General) History Medical History History ICD Code Arthritis rheumatoid arthritis Back Trouble hypertension Surgical History Surgery Date(Month/Year) appendectomy Hysterectomy
--- OUTSIDE RECORDS SUMMARY | 2025-05-05 07:10 | XMS_ITS | Clinical Summary ---
Author Organization [facility] Address [address] [place] [address] Care Team Providers Care Lathe Mechanic Name Role Phone Unavailable Primary Care Provider [...]
[2025-05-05 07:58] LABS: Cholesterol 207 mg/dL (0-200); HDL Direct 71 mg/dL; Triglycerides 102 mg/dL (<150)
[2025-05-05 08:08] LABS: NT Pro B Type Natriuretic Pept 347 pg/mL (19.9-100)
[2025-05-05 08:28] LABS: Thyroid Stimulating Hormone Reflex 1.830 uIU/mL (0.465-4.68)
== END 2025-05-05 07:07 | disposition home or self-care (01) ==
LOC: CHSLAB 07:07
PROVIDERS: PCP Family Medicine; Visit Provider Nurse Practitioner Family
DX: I10 Essential (primary) hypertension (principal); R79.89 Other specified abnormal findings of blood chemistry; R55 Syncope and collapse; Z68.31 Body mass index [BMI] 31.0-31.9, adult; R06.9 Unspecified abnormalities of breathing
CPT/HCPCS: 36415; 80061; 82306; 83880; 84443